=== PATIENT | female | born 1995 | race Two or more races ===

== ENCOUNTER 2023-01-31 14:15 | Emergency (ER) | payer OTHER ==
[~2023-01-31] VITALS: Ht 152.4 cm; Wt 53.4 kg
[2023-01-31 15:11] LABS: Basophils # (auto) 0 10 ^3/uL (0-0.2); Basophils % (auto) 0.4 % (0.0-2.0); Eosinophils # (auto) 0 10 ^3/uL (0-0.8); Eosinophils % (auto) 0.3 % (0.0-7.0); Hematocrit 37.6 % (36.0-46.0); Hemoglobin 12.8 g/dL (12.2-16.2); Lymphocytes # (auto) 2.6 10 ^3/uL (0.4-5.4); Lymphocytes % (auto) 25.9 % (10.0-50.0); Mean Corpuscular Hemoglobin 31.2 pg (28.0-32.0); Mean Corpuscular Hgb Conc. 34.2 g/dL (32.0-36.0); Mean Corpuscular Volume 91.3 fL (80.0-100.0); Monocytes # (auto) 0.9 10 ^3/uL (0-1.3); Monocytes % (auto) 9.2 % (0.0-12.0); Neutrophils # (auto) 6.4 10 ^3/uL (1.6-8.6); Neutrophils % (auto) 64.2 % (37.0-80.0); Red Blood Cells 4.11 10^6/uL (4.0-5.20); Red Cell Distribution Width 13.7 % (11.8-14.3)
[2023-01-31 15:30] LABS: Alanine Aminotransferase 26 U/L (7-40); Albumin 4.6 g/dL (3.2-4.8); Alkaline Phosphatase 68 U/L (46-116); Anion Gap 8 (5-15); Aspartate Aminotransferase 74 U/L (13-40); BUN/Creatinine Ratio 12.1 (10.0-20.0); Blood Urea Nitrogen 11 mg/dL (9-23); Calcium 8.8 mg/dL (8.7-10.4); Carbon Dioxide 24 mmol/L (20-30); Chloride 106 mmol/L (98-107); Glucose 84 mg/dL (74-106); Potassium 3.1 mmol/L (3.5-5.1); Sodium 138 mmol/L (136-145)
[2023-01-31 15:31] LABS: Bilirubin, Total 1.4 mg/dL (0.2-1.0); Total Protein 7.6 g/dL (5.7-8.2)
[2023-01-31 18:04] VITALS: BP 109/72; PULSE 87; RESP 17; TEMP 98.1; O2SAT 99
== END 2023-01-31 18:05 | disposition home or self-care (01) ==
LOC: ER 14:15
DX: S02.2XXA Fracture of nasal bones, initial encounter for closed fracture (principal); S50.812A Abrasion of left forearm, initial encounter; S50.811A Abrasion of right forearm, initial encounter; S80.812A Abrasion, left lower leg, initial encounter; S80.811A Abrasion, right lower leg, initial encounter; Y04.2XXA Assault by strike against or bumped into by another person, initial encounter; Y93.89 Activity, other specified; Y92.89 Other specified places as the place of occurrence of the external cause; Y99.8 Other external cause status
CPT/HCPCS: 36415; 70450; 70486; 71046; 72125; 80053; 85025; 93005

== ENCOUNTER 2024-09-29 12:54 | Emergency (ER) | payer MEDICAID, OTHER ==
[~2024-09-29] VITALS: Ht 152.4 cm; Wt 74.1 kg
[2024-09-29 14:10] VITALS: BP 104/60; PULSE 75; RESP 16; TEMP 98.1; O2SAT 98
[2024-09-29] MEDS ORDERED: CEPH500C PO (14:23)
[2024-09-29] MEDS ORDERED: ACET500T58 PO (14:23)
--- NOTE | 2024-09-29 14:23 | ED.PDOC ---
History of Present Illness(SKN HPI Comments A 29 year old female presents to the ED c/o insect bite of right thigh. Patient states she was bitten by an insect on her right thigh above her right knee 3 days ago and has been experiencing redness, pain, and mild drainage to the area since then. Patient notes she is also currently 2.5 months Denies fever, SOB, chest pain, abdominal pain, nausea, vomiting, diarrhea, headache, dizziness, vision changes, or numbness/tingling of extremities. No other symptoms or modifying factors reported at this time. Patient is alert and oriented x4 and has a stable gait. Chief Complaint: Insect Bite Time Seen by MD: 13:12 Primary Care Provider: NONE History of Present Illness: Nurses Notes, Medications, Allergies Allergies: Coded Allergies: NO KNOWN ALLERGIES (Unverified , 09/29/24) Home Meds Active Scripts Acetaminophen (Acetaminophen) 500 Mg Tab, 500 MG PO Q6HP PRN for 10 Days, #40 TAB 0 Refills Prov:TINO CORRIGAN CIRCUIT CLERK 09/29/24 Cephalexin Monohydrate (Cephalexin) 500 Mg Cap, 1 CAP PO QID for 5 Days, #20 CAP 0 Refills Prov:TINO CORRIGAN CIRCUIT CLERK 09/29/24 Information Source: Patient Mode of Arrival: Ambulatory Severity: Moderate Timing: Days Duration: Since onset, Other Prehospital treatment: None Location: Other (right thigh) Mechanism: Insect Developed: Rash Occurence: Indoors Object: None Condition of Object: None Wound Type: Other (Insect bite) Immunization Status of Animal: NA Tetanus: Unknown History of: None Associated Signs and Symptoms: Redness, Pain Past Medical History PAST MEDICAL HISTORY: Denies Surgical History: Denies all surgeries DRY KILN LOADER History: Denies all DRY KILN LOADER Hx Family History Family History: Reviewed,noncontributory to illness Social History Smoker: Non-Smoker Alcohol: Occasionally Drugs: Marijuana Lives In: Home Constitutional: denies: chills, diaphoresis, fatigue, fever, malaise, sweats, weakness, others EENTM: denies: blurred vision, double vision, ear bleeding, ear discharge, ear drainage, ear pain, ear ringing, eye pain, eye redness, hearing loss, mouth pain, mouth swelling, nasal discharge, nose bleeding, nose congestion, nose pain, photophobia, tearing, throat pain, throat swelling, voice changes, others Respiratory: denies: cough, hemoptysis, orthopnea, SOB at rest, shortness of breath, SOB with excertion, stridor, wheezing, others Cardiovascular: denies: chest pain, dizzy spells, diaphoresis, Dyspnea on exertion, edema, irregular heart beat, left arm pain, lightheadedness, palpitations, PND, syncope, others Gastrointestinal: denies: abdomen distended, abdominal pain, blood streaked bowels, constipated, diarrhea, dysphagia, difficulty swallowing, hematemesis, melena, nausea, poor appetite, poor fluid intake, rectal bleeding, rectal pain, vomiting, others Genitourinary: denies: abnormal vagina bleeding, burning, dyspareunia, dysuria, flank pain, frequency, hematuria, incontinence, pain, , vagina discharge, urgency, others Neurological: denies: dizziness, fainting, headache, left sided numbness, left sided weakness, numbness, paresthesia, pre-existing deficit, right sided numbness, right sided weakness, seizure, speech problems, tingling, tremors, weakness, others Musculoskeletal: denies: back pain, gout, joint pain, joint swelling, muscle pain, muscle stiffness, neck pain, others Integumetry: reports: others (Insect bite of right thigh/knee region with redness and pain); denies: bruises, change in color, change in hair/nails, dryness, laceration, lesions, lumps, rash, wounds Allergic/Immunocompromised: denies: Difficulty Healing, Frequent Infections, Hives, Itching, others Hematologic/Lymphatic: denies: anemia, blood clots, easy bleeding, easy bruising, swollen glands, others Endocrine: denies: excessive hunger, excessive sweating, excessive thirst, excessive urination, flushing, intolerance to cold, intolerance to heat, unexplained weight gain, unexplained weight loss, others Psychiatric: denies: anxiety, bipolar disorder, depression, hopeless, panic disorder, schizophrenia, sleepless, suicidal, others All Other Systems: Reviewed and Negative Physical Exam General Appearance: No Apparent Distress, Normal HEENT: Normal ENT Inspection, Pharynx Normal, TMs Normal Neck: Full Range of Motion, Non-Tender, Normal, Normal Inspection Respiratory: Chest Non-Tender, Lungs Clear, No Accessory Muscle Use, No Respiratory Distress, Normal Breath Sounds Cardiovascular: No Edema, No JVD, No Murmur, No Gallop, Regular Rate/Rhythm Breast Exam: Deferred Gastrointestinal: No Organomegaly, Non Tender, No Pulsatile Mass, Normal Bowel Sounds, Soft Genitalia: Deferred Pelvic: Deferred Rectal: Deferred Extremities: No calf tenderness, Normal capillary refill, Normal inspection, Normal range of motion, Non-tender, No pedal edema Musculoskeletal : Apperance: Normal Neurologic: Alert, piggyback clerk II-XII nml as Tested, No Motor Deficits, Normal Affect, Normal Mood, No Sensory Deficits Cerebellar Function: Normal Reflexes: Normal Skin: Dry, Warm, Other (2 x 4 cm round erythematous rash noted above right anterior patellar region. No TIP. No fluctuance noted. No crepitus upon palpation.) Lymphatic: No Adenopathy Was a procedure done? Was a procedure done?: No Differential Diagnosis (INTG) Differential Diagnosis: Abrasion, Cellulitis, Contusion, Insect Envenomation, Puncture Wound Differential Diagnosis: N/A Differential Diagnosis: N/A Abscess: N/A Differential Diagnosis: N/A X-Ray, Labs, Meds, VS Vital Signs Date Time Temp Pulse Resp B/P (MAP) Pulse Ox O2 Delivery O2 Flow Rate FiO2 09/29/24 14:10 75 16 98 09/29/24 14:10 98.1 75 16 104/60 (75) 98 98.1 09/29/24 13:07 98.1 75 16 104/60 (75) 98 98.1 X-Ray, Labs, Meds, VS Comment A 29 year old female presents to the ED c/o insect bite of right thigh region. Patient arrives alert and oriented, ABC's intact, afebrile, vital signs stable, saturating well in room air History and findings consistent with cellulitis. The area of infection does not appear to have any loculations/induration based on physical exam. The patient did not require an incision and drainage. Patient well appearing. VSS. Given History, Exam, and Workup I have low suspicion for Necrotizing Fasciitis, Abscess, Osteomyelitis, DVT or other emergent problem as a cause for this presentation. Low risk for treatment failure based on history. Prescribed p.o. antibiotics for presentation of symptoms Complete course of antibiotic therapy even if symptoms improve or resolve. There should be no leftover antibiotics as this can lead to antibiotic resistant bacteria and even worse infection. Patient verbalized understanding. Potential side effects discussed with patient including abdominal pain, nausea, diarrhea. Recommended probiotics and return precautions given Persistent diarrhea Dehydration Blood in stool Ill-appearing Additional MDM Review of External, Non-ED records: External records reviewed. Discussion with independent historian history obtained from the patient (if applicable) at bedside Chronic conditions affecting care: None Social determinants of health affecting care: None Procedures done: None Critical care: None Consideration of admission (observation or admission): I considered escalation of care to admission for this patient, however given the reassuring workup, the patient is safe for outpatient management. Discussion with the Radiology: No Tests considered but not performed: None Prescription medication given: Keflex and Tylenol Discussed the patient's case with Dr. Galvan and he agrees with the patient's plan of care and disposition. Time of 1ST Reevaluation: 14:00 Reevaluation 1ST: Improved Patient Education/Counseling: Diagnosis, Treatment, Need For Follow Up Family Education/Counseling: Diagnosis, Treatment, Need For Follow Up Departure 1 Departure Time of Disposition: 14:21 Impression: Primary Impression: Cellulitis Qualified Codes: L03.115 - Cellulitis of right lower limb Additional Impression: Insect bite Qualified Codes: S70.361A - Insect bite (nonvenomous), right thigh, initial encounter; W57.XXXA - Bitten or stung by nonvenomous insect and other nonvenomous arthropods, initial encounter Disposition: HOME / SELF CARE / HOMELESS Condition: Stable Additional Instructions: Follow up with PCP in 1-2 days. Take medications as prescribed. Return to the ED for any new or worsening symptoms. e-Prescriptions Acetaminophen (Acetaminophen) 500 Mg Tab 500 MG PO Q6HP PRN for 10 Days, #40 TAB 0 Refills Prov: TINO CORRIGAN NP 09/29/24 Cephalexin Monohydrate (Cephalexin) 500 Mg Cap 1 CAP PO QID for 5 Days, #20 CAP 0 Refills Prov: TINO CORRIGAN NP 09/29/24 Discharged With: Self Critical Care Note Critical Care Time?: No Stability Stability form required: No Heart Score Heart Score: Heart Score Response (Comments) Value History N/A 0 EKG N/A 0 Age N/A 0 Risk Factors N/A 0 Troponin N/A 0 Total 0 I personally scribed for TINO CORRIGAN NP ([email or web address]) on 09/29/24 at 14:31. Electronically submitted by Rui Steiner ([email or web address]). TINO CORRIGAN NP Sep 29, 2024 14:23
== END 2024-09-29 14:30 | disposition home or self-care (01) ==
LOC: ER 12:54
DX: S70.361A Insect bite (nonvenomous), right thigh, initial encounter (principal); L03.115 Cellulitis of right lower limb; F10.90 Alcohol use, unspecified, uncomplicated; F19.90 Other psychoactive substance use, unspecified, uncomplicated; Y90.9 Presence of alcohol in blood, level not specified; Z79.899 Other long term (current) drug therapy; W57.XXXA Bitten or stung by nonvenomous insect and other nonvenomous arthropods, initial encounter; Y93.89 Activity, other specified; Y92.89 Other specified places as the place of occurrence of the external cause; Y99.8 Other external cause status

== ENCOUNTER 2025-04-19 11:35 | Inpatient (IN) | payer MEDICAID ==
[~2025-04-19] VITALS: Ht 152.4 cm; Wt 87.1 kg
[~2025-04-19 11:35] MED LIST: ACET500T58 PO; CEPH500C PO
[2025-04-19] MEDS ORDERED: BUTORPHANOL TARTRATE 2 MG/1 ML VIAL IV PRN ×2 (13:00)
[2025-04-19] MEDS ORDERED: LACT. RINGERS/OXYTOCIN 20UNITS 500 ML IV ONE ×2 (13:00→13:30)
[2025-04-19] MEDS ORDERED: LIDOCAINE 2%HCL (LOCAL ANESTH.) INJ 20ML MDV IJ PRN (13:00)
[2025-04-19] MEDS: PHISODERM TOP SOLN 240ML BTL TOP PRN (13:29)
[2025-04-19] MEDS: DERMOPLAST 60ML BOTTLE TOP PRN (13:29)
[2025-04-19] MEDS: WITCH HAZEL-GLYCERIN PAD TOP PRN (13:29)
[2025-04-19 13:48] LABS: Hematocrit 36.0 % (36.0-46.0); Hemoglobin 11.8 g/dL (12.2-16.2); Mean Corpuscular Hemoglobin 27.9 pg (28.0-32.0); Mean Corpuscular Volume 84.9 fL (80.0-100.0); Nucleated Red Blood Cells % 0.3 %
[2025-04-19 13:58] LABS: INR 0.91 (0.9-1.15); Partial Thromboplastin Time 25.7 SEC (24.5-34.5); Prothrombin Time 9.7 sec (9.3-11.8)
[2025-04-19 14:01] LABS: Amphetamine Screen, Urine Neg (NEGATIVE)
[2025-04-19 14:03] LABS: Barbiturate Scree,Urine Neg (NEGATIVE); Benzodiazephine Screen, Urine Neg (NEGATIVE); Cannabinoid Screen, Urine Neg (NEGATIVE); Cocaine Screen, Urine Neg (NEGATIVE); Opiate Scree,Urine Neg (NEGATIVE); Phencyclidine Screen, Urine Neg (NEGATIVE)
[2025-04-19 14:04] LABS: Alanine Aminotransferase 13 U/L (7-40); Albumin 3.9 g/dL (3.2-4.8); Alkaline Phosphatase 177 U/L (46-116); Anion Gap 12 (5-15); BUN/Creatinine Ratio 11.1 (10.0-20.0); Bilirubin, Total 0.3 mg/dL (0.2-1.0); Blood Urea Nitrogen 6 mg/dL (9-23); Calcium 9.0 mg/dL (8.7-10.4); Carbon Dioxide 18 mmol/L (20-31); Chloride 108 mmol/L (98-107); Glucose 94 mg/dL (74-106); Potassium 3.9 mmol/L (3.5-5.1); Sodium 138 mmol/L (136-145); Total Protein 6.8 g/dL (5.7-8.2)
[2025-04-19 14:05] LABS: Urine Protein, UAD Negative (Negative)
--- NOTE | 2025-04-19 15:02 | DVHHP2 ---
OB CC & HPI Date Date of Admission: Apr 19, 2025 Patient Identification: : 1 Para: 0 EDC: Apr 22, 2025 EGA: 39wks Chief Complaints: Reason for admission: induction of labor Indication for : other (dec movement and low lorenzo) Admission Nurse Assessment Rev: No History of Present Complaints pt is admitted for low lorenzo a of 6cm and dec movement. efw is 8-1,option of pcs to avoid shoulder dystocia is d/w pt pt wants to proceed with trial of labor. Past Medical History Cardiac: No pertinent Hx Pulmonary: No pertinent Hx Central Nervous System: No pertinent Hx GI: No pertinent Hx Hemotology/Oncology: No pertinent Hx Hepatobiliary: No pertinent Hx Psychiatric: No pertinent Hx Musculoskeletal: No pertinent Hx Rheumotologic: No pertinent Hx Infectious Disease: No peritnent Hx ENT: No pertinent Hx Renal/: No pertinent Hx Endocrine: No pertinent Hx Dermatology: No pertinent Hx Past Surgical History: No pertinent Hx OB History OB History Care: Good Care Ultrasounds: Normal mid trimester US Obstetrical Complications: None Medical Complications: None Allergies: Coded Allergies: NO KNOWN ALLERGIES (Unverified , 09/29/24) Home Meds Active Scripts Acetaminophen (Acetaminophen) 500 Mg Tab, 500 MG PO Q6HP PRN for 10 Days, #40 TAB 0 Refills Prov:TINO CORRIGAN SUPERVISOR MACHINING 09/29/24 Cephalexin Monohydrate (Cephalexin) 500 Mg Cap, 1 CAP PO QID for 5 Days, #20 CAP 0 Refills Prov:TINO CORRIGAN SUPERVISOR MACHINING 09/29/24 Current Medications Current Medications Medications (Trade) Dose Ordered Sig/Kalyani Route PRN Reason Start Time Stop Time Status Last Admin Lactated Ringer's 1,000 ml @ 125 mls/hr Q8H IV 04/19/25 13:00 Kristen Chavira (Tucks) 1 pad PRN PRN TOP PERINEAL AREA DISCOMFORT 04/19/25 13:00 04/19/25 13:29 Sodium Lauryl Sulfate (Phisoderm) 240 ml PRN PRN TOP PERINEAL AREA DISCOMFORT 04/19/25 13:00 04/19/25 13:29 Benzocaine (Dermoplast) 1 applic PRN PRN TOP PERINEAL AREA DISCOMFORT 04/19/25 13:00 04/19/25 13:29 Butorphanol Tartrate (Stadol Injection) 1 mg Q4HPRN PRN IV MODERATE PAIN (4-6 PAIN SCALE) 04/19/25 13:00 Butorphanol Tartrate (Stadol Injection) 2 mg Q4HPRN PRN IV SEVERE PAIN (7-10 PAIN SCALE) 04/19/25 13:00 Misoprostol (Cytotec) 50 mcg Q4HPRN PRN PO CERVICAL RIPENING 04/19/25 13:00 04/19/25 13:30 Lidocaine HCl (Xylocaine) 20 ml ONCE PRN IJ PERINEAL AREA DISCOMFORT 04/19/25 13:00 Family & Social History Family/Social History Blood Type: Unknown Rubella: unknown RPR/VDRL: Unknown GBS Status: Unknown HBsAG: Unknown Review of Systems Constitutional: No symptom reported Ears, Nose, & Throat: No symptom reported Eyes: No symptom reported Pulmonary/Respiratory: No symptom reported Cardiovascular: No symptom reported Gastrointestinal: No symptom reported Genitourinary: No symptom reported Musculoskeletal: No symptom reported Skin: No symptom reported Psychiatric: No symptom reported Endocrine: No symptom reported Hemotologic/Lymphatic: No symptom reported OB Admission Exam Physical Exam HEENT: TMs Normal, Fontanelles Normal, Nasal Mucosa Normal, Eyes non-injected, Oropharynx Normal, PERRLA, Moist Membranes, EOMI Heart: Rhythm Normal Lungs: Clear Abdomen: Non tender Extremities: Normal Reflexes: Normal Cervical Dilatation: None Effacement: 25% Station: -3 Membranes: Intact Heart Rate: 130's Accelerations: Accelerations Present Decelerations: No Decelerations Short Term Variability: Present Fpc Variability: Average (6-25) Contractions on Admission: >10 Minutes Apart Intensity: Mild OB Plan Plan Admitting Diagnosis: Induction of Labor for oligo Plan: Expectant Management, Induction Induction Methd: Misoprostol protocol Other Plan: informed consent obtained,risks and complication of iol d/w pt.option of pcs to avoid shoulder dystocia d/w pt.pt wants trial of labor Visit Coding OBGYN Date of Service: Apr 19, 2025 Billing Provider: ROSSI POMPA DO WRONG ADDRESS CLERK Common Visit Codes: [id number] OBS CARE (HIGH) WRONG ADDRESS CLERK Procedure Codes: 77126-94- NON-STRESS TEST ROSSI POMPA DO Apr 19, 2025 15:02
--- NOTE | 2025-04-19 20:25 | DVHPN2 ---
OB Labor Progress Note Date and Time Seen Date Seen: Apr 19, 2025 Time Seen: 17:00 Subjective Patient reports: No new complaints Subjective Comment 30yo IUP@39.4wks. Pt reports irregular UCs. Objective Vital Signs VSS See kelley JOSEW in office 6lbs 10oz per pt Monitoring Method Monitoring Method: External Heart Rate Heart Rate Baseline: 145 Heart Rate Variability: Moderate Presence of FHR Accelerations: Yes Presence of FHR Decelerations: No Changes in Trends of Patterns: No Are all 5 Components of the FH: Yes Contractions Contractions Frequency: Occasional Duration of Contraction: 50 Contractions Intensity: Mild Contractions Resting Tone: Relaxed Membranes Membranes: Intact Vaginal Exam Vag Exam Deferred: Yes Vaginal Exam Show: None Medications Medications - Pitocin: No Medications - Pain Medications: PRN Medication - Epidural: No Medication - Other s/p 1 dose of cytotec Lab Results Lab Results Current Medications Medications (Trade) Dose Ordered Sig/Kalyani Start Time Stop Time Status Last Admin Dose Admin Lactated Ringer's 1,000 ml @ 125 mls/hr Q8H 04/19/25 13:00 Kristen Chavira (Tucks) 1 pad PRN PRN 04/19/25 13:00 04/19/25 13:29 1 PAD Sodium Lauryl Sulfate (Phisoderm) 240 ml PRN PRN 04/19/25 13:00 04/19/25 13:29 240 ML Benzocaine (Dermoplast) 1 applic PRN PRN 04/19/25 13:00 04/19/25 13:29 1 APPLIC Butorphanol Tartrate (Stadol Injection) 1 mg Q4HPRN PRN 04/19/25 13:00 Butorphanol Tartrate (Stadol Injection) 2 mg Q4HPRN PRN 04/19/25 13:00 Misoprostol (Cytotec) 50 mcg Q4HPRN PRN 04/19/25 13:00 04/19/25 22:26 50 MCG Lidocaine HCl (Xylocaine) 20 ml ONCE PRN 04/19/25 13:00 Oxytocin 500 ml @ 999 mls/hr Q31M ONCE 04/19/25 13:00 04/19/25 13:30 DC Oxytocin 500 ml @ 125 mls/hr Q4H ONCE 04/19/25 13:30 04/19/25 17:29 DC Laboratory Tests Test 04/19/25 13:09 04/19/25 11:45 Range/Units White Blood Count 10.0 4.4-10.8 10^3/uL Red Blood Count 4.24 4.0-5.20 10^6/uL Hemoglobin 11.8 L 12.2-16.2 g/dL Hematocrit 36.0 36.0-46.0 % Mean Corpuscular Volume 84.9 80.0-100.0 fL Mean Corpuscular Hemoglobin 27.9 L 28.0-32.0 pg Mean Corpuscular Hemoglobin Concent 32.9 32.0-36.0 g/dL Red Cell Distribution Width 15.9 H 11.8-14.3 % Platelet Count 315 140-450 10^3/uL Mean Platelet Volume 7.7 6.9-10.8 fL Neutrophils (%) (Auto) 76.7 37.0-80.0 % Lymphocytes (%) (Auto) 17.3 10.0-50.0 % Monocytes (%) (Auto) 4.6 0.0-12.0 % Eosinophils (%) (Auto) 1.0 0.0-7.0 % Basophils (%) (Auto) 0.4 0.0-2.0 % Neutrophils # (Auto) 7.7 1.6-8.6 10 ^3/uL Lymphocytes # (Auto) 1.7 0.4-5.4 10 ^3/uL Monocytes # (Auto) 0.5 0-1.3 10 ^3/uL Eosinophils # (Auto) 0.1 0-0.8 10 ^3/uL Basophils # (Auto) 0 0-0.2 10 ^3/uL Nucleated Red Blood Cells 0.3 % Prothrombin Time 9.7 9.3-11.8 sec Prothrombin Time INR 0.91 0.9-1.15 Activated Partial Thromboplast Time 25.7 24.5-34.5 SEC Sodium Level 138 136-145 mmol/L Potassium Level 3.9 3.5-5.1 mmol/L Chloride Level 108 H 98-107 mmol/L Carbon Dioxide Level 18 L 20-31 mmol/L Anion Gap 12 5-15 Blood Urea Nitrogen 6 L 9-23 mg/dL Creatinine 0.54 L 0.550-1.02 mg/dL Glomerular Filtration Rate Calc 129 >90 mL/min BUN/Creatinine Ratio 11.1 10.0-20.0 Serum Glucose 94 74-106 mg/dL Calcium Level 9.0 8.7-10.4 mg/dL Total Bilirubin 0.3 0.2-1.0 mg/dL Aspartate Amino Transferase (AST) 15 13-40 U/L Alanine Aminotransferase (ALT) 13 7-40 U/L Alkaline Phosphatase 177 H 46-116 U/L Total Protein 6.8 5.7-8.2 g/dL Albumin 3.9 3.2-4.8 g/dL Treponema pallidum Antibody Non-reactive Negative Hepatitis C Antibody Pending Urine Color Yellow Yellow Urine Clarity Turbid H Clear Urine pH 5.5 5.0-9.0 Urine Specific [place] 1.023 1.001-1.035 Urine Protein Negative Negative Urine Ketones Negative Negative Urine Blood Negative Negative /uL Urine Nitrite Negative Negative Urine Bilirubin Negative Negative Urine Urobilinogen Normal Negative mg/dL Urine Leukocyte Esterase Trace Negative /uL Urine RBC 7 0 - 4 /hpf Urine Microscopic WBC 3 0-5 /HPF Urine Squamous Epithelial Cells Many <5 /hpf Urine Bacteria Few H None Seen /hpf Urine Mucus Few None Seen Urine Glucose Normal Normal mg/dL Urine Opiates Screen Neg NEGATIVE Urine Fentanyl Screen Neg NEGATIVE Urine Barbiturates Screen Neg NEGATIVE Urine Phencyclidine Screen Neg NEGATIVE Urine Amphetamines Screen Neg NEGATIVE Urine Benzodiazepines Screen Neg NEGATIVE Urine Cocaine Screen Neg NEGATIVE Urine Cannabinoids Screen Neg NEGATIVE Consulting with Consulting with: None Assessment Assessment 30yo IUP@39.4wks Induction of Labor for oligohydramnios Category I EFM Intact Membranes GBS negative Plan Plan Continue with PO cytotec monitoring per order Pain mgmt PRN Frequent position changes in and out of bed encouraged Limit SVE unless necessary Intrauterine resuscitation PRN Anticipate CNM will consult with Dr Esteves PRN Plan discussed with: Patient, Spouse Visit Coding OBGYN Date of Service: Apr 19, 2025 Billing Provider: SRINIVAS LINARES CNM SHARED SERVICES AND OUTSOURCING MANAGER Common Visit Codes: [id number] INP/OBS CARE(MOD) SHARED SERVICES AND OUTSOURCING MANAGER Procedure Codes: 06077-02- NON-STRESS TEST NANCY VOSSMDW Apr 19, 2025 20:25
--- NOTE | 2025-04-19 22:58 | DVHPN2 ---
OB Labor Progress Note Date and Time Seen Date Seen: Apr 19, 2025 Time Seen: 22:35 Subjective Patient reports: No new complaints Objective Vital Signs VSS, see CPN Monitoring Method Monitoring Method: External Heart Rate Heart Rate Baseline: 135 Heart Rate Variability: Moderate Presence of FHR Accelerations: Yes Presence of FHR Decelerations: No Changes in Trends of Patterns: No Are all 5 Components of the FH: Yes Contractions Contractions Frequency: Occasional Duration of Contraction: 60 Contractions Intensity: Mild Contractions Resting Tone: Relaxed Membranes Membranes: Intact Vaginal Exam Vag Exam Deferred: No (/-4) Vaginal Exam Presentation: VTX Vaginal Exam Show: None Medications Medications - Pitocin: No Medications - Pain Medications: prn Medication - Epidural: No Medication - Other S/P 2 doses of cytotec Lab Results Lab Results Current Medications Medications (Trade) Dose Ordered Sig/Kalyani Start Time Stop Time Status Last Admin Dose Admin Lactated Ringer's 1,000 ml @ 125 mls/hr Q8H 04/19/25 13:00 Kristen Chavira (Tucks) 1 pad PRN PRN 04/19/25 13:00 04/19/25 13:29 1 PAD Sodium Lauryl Sulfate (Phisoderm) 240 ml PRN PRN 04/19/25 13:00 04/19/25 13:29 240 ML Benzocaine (Dermoplast) 1 applic PRN PRN 04/19/25 13:00 04/19/25 13:29 1 APPLIC Butorphanol Tartrate (Stadol Injection) 1 mg Q4HPRN PRN 04/19/25 13:00 Butorphanol Tartrate (Stadol Injection) 2 mg Q4HPRN PRN 04/19/25 13:00 Misoprostol (Cytotec) 50 mcg Q4HPRN PRN 04/19/25 13:00 04/19/25 22:26 50 MCG Lidocaine HCl (Xylocaine) 20 ml ONCE PRN 04/19/25 13:00 Oxytocin 500 ml @ 999 mls/hr Q31M ONCE 04/19/25 13:00 04/19/25 13:30 DC Oxytocin 500 ml @ 125 mls/hr Q4H ONCE 04/19/25 13:30 04/19/25 17:29 DC Laboratory Tests Test 04/19/25 13:09 04/19/25 11:45 Range/Units White Blood Count 10.0 4.4-10.8 10^3/uL Red Blood Count 4.24 4.0-5.20 10^6/uL Hemoglobin 11.8 L 12.2-16.2 g/dL Hematocrit 36.0 36.0-46.0 % Mean Corpuscular Volume 84.9 80.0-100.0 fL Mean Corpuscular Hemoglobin 27.9 L 28.0-32.0 pg Mean Corpuscular Hemoglobin Concent 32.9 32.0-36.0 g/dL Red Cell Distribution Width 15.9 H 11.8-14.3 % Platelet Count 315 140-450 10^3/uL Mean Platelet Volume 7.7 6.9-10.8 fL Neutrophils (%) (Auto) 76.7 37.0-80.0 % Lymphocytes (%) (Auto) 17.3 10.0-50.0 % Monocytes (%) (Auto) 4.6 0.0-12.0 % Eosinophils (%) (Auto) 1.0 0.0-7.0 % Basophils (%) (Auto) 0.4 0.0-2.0 % Neutrophils # (Auto) 7.7 1.6-8.6 10 ^3/uL Lymphocytes # (Auto) 1.7 0.4-5.4 10 ^3/uL Monocytes # (Auto) 0.5 0-1.3 10 ^3/uL Eosinophils # (Auto) 0.1 0-0.8 10 ^3/uL Basophils # (Auto) 0 0-0.2 10 ^3/uL Nucleated Red Blood Cells 0.3 % Prothrombin Time 9.7 9.3-11.8 sec Prothrombin Time INR 0.91 0.9-1.15 Activated Partial Thromboplast Time 25.7 24.5-34.5 SEC Sodium Level 138 136-145 mmol/L Potassium Level 3.9 3.5-5.1 mmol/L Chloride Level 108 H 98-107 mmol/L Carbon Dioxide Level 18 L 20-31 mmol/L Anion Gap 12 5-15 Blood Urea Nitrogen 6 L 9-23 mg/dL Creatinine 0.54 L 0.550-1.02 mg/dL Glomerular Filtration Rate Calc 129 >90 mL/min BUN/Creatinine Ratio 11.1 10.0-20.0 Serum Glucose 94 74-106 mg/dL Calcium Level 9.0 8.7-10.4 mg/dL Total Bilirubin 0.3 0.2-1.0 mg/dL Aspartate Amino Transferase (AST) 15 13-40 U/L Alanine Aminotransferase (ALT) 13 7-40 U/L Alkaline Phosphatase 177 H 46-116 U/L Total Protein 6.8 5.7-8.2 g/dL Albumin 3.9 3.2-4.8 g/dL Treponema pallidum Antibody Non-reactive Negative Hepatitis C Antibody Pending Urine Color Yellow Yellow Urine Clarity Turbid H Clear Urine pH 5.5 5.0-9.0 Urine Specific [place] 1.023 1.001-1.035 Urine Protein Negative Negative Urine Ketones Negative Negative Urine Blood Negative Negative /uL Urine Nitrite Negative Negative Urine Bilirubin Negative Negative Urine Urobilinogen Normal Negative mg/dL Urine Leukocyte Esterase Trace Negative /uL Urine RBC 7 0 - 4 /hpf Urine Microscopic WBC 3 0-5 /HPF Urine Squamous Epithelial Cells Many <5 /hpf Urine Bacteria Few H None Seen /hpf Urine Mucus Few None Seen Urine Glucose Normal Normal mg/dL Urine Opiates Screen Neg NEGATIVE Urine Fentanyl Screen Neg NEGATIVE Urine Barbiturates Screen Neg NEGATIVE Urine Phencyclidine Screen Neg NEGATIVE Urine Amphetamines Screen Neg NEGATIVE Urine Benzodiazepines Screen Neg NEGATIVE Urine Cocaine Screen Neg NEGATIVE Urine Cannabinoids Screen Neg NEGATIVE Assessment Assessment 30yo IUP@39.4wks Induction of Labor for oligohydramnios Category I EFM Intact Membranes GBS negative Plan Plan Continue with PO cytotec monitoring per order Pain mgmt PRN Frequent position changes in and out of bed encouraged Limit SVE unless necessary Intrauterine resuscitation PRN Anticipate CNM will consult with Dr Esteves PRN Plan discussed with: Patient, Spouse Visit Coding OBGYN Date of Service: Apr 19, 2025 Billing Provider: SRINIVAS LINARES CNM CONTRACT GRAPHIC DESIGNER Common Visit Codes: [id number] INP/OBS CARE(MOD) NANCY VOSS STUDENTMDW Apr 19, 2025 22:58
--- NOTE | 2025-04-20 07:53 | DVHPN2 ---
Chief Complaints Patient reports: No new complaints Nursing reports: No new complaints Objective Medications Current Medications Medications (Trade) Dose Ordered Sig/Kalyani Route PRN Reason Start Time Stop Time Status Last Admin Benzocaine (Dermoplast) 1 applic PRN PRN TOP PERINEAL AREA DISCOMFORT 04/19/25 13:00 04/19/25 13:29 Butorphanol Tartrate (Stadol Injection) 1 mg Q4HPRN PRN IV MODERATE PAIN (4-6 PAIN SCALE) 04/19/25 13:00 Butorphanol Tartrate (Stadol Injection) 2 mg Q4HPRN PRN IV SEVERE PAIN (7-10 PAIN SCALE) 04/19/25 13:00 Lactated Ringer's 1,000 ml @ 125 mls/hr Q8H IV 04/19/25 13:00 Lidocaine HCl (Xylocaine) 20 ml ONCE PRN IJ PERINEAL AREA DISCOMFORT 04/19/25 13:00 Misoprostol (Cytotec) 50 mcg Q4HPRN PRN PO CERVICAL RIPENING 04/19/25 13:00 04/20/25 07:00 Sodium Lauryl Sulfate (Phisoderm) 240 ml PRN PRN TOP PERINEAL AREA DISCOMFORT 04/19/25 13:00 04/19/25 13:29 Witch Cait (Tucks) 1 pad PRN PRN TOP PERINEAL AREA DISCOMFORT 04/19/25 13:00 04/19/25 13:29 Others ve-1cm/40/-3/post Studies Laboratory Tests 04/19/25 13:09 Test 04/19/25 13:09 Range/Units Serum Glucose 94 74-106 mg/dL Ass/Plan Assessment iol for oligo Plan rec cytotec cont with cytotec Visit Coding OBGYN Date of Service: Apr 20, 2025 Billing Provider: ROSSI POMPA DO PRINTING MACHINE MECHANIC Common Visit Codes: [id number] OBS CARE (HIGH) PRINTING MACHINE MECHANIC Procedure Codes: 65176-82- NON-STRESS TEST ROSSI POMPA DO Apr 20, 2025 07:53
[2025-04-20] MEDS: LACTATED RINGER'S 1,000 ML IV SCH (07:59)
[2025-04-20] MEDS ORDERED: DINOPROSTONE 10MG VAG SUPP PV ONE (12:00)
--- NOTE | 2025-04-20 12:14 | DVHPN2 ---
Chief Complaints Patient reports: No new complaints Nursing reports: No new complaints Objective Medications Current Medications Medications (Trade) Dose Ordered Sig/Kalyani Route PRN Reason Start Time Stop Time Status Last Admin Benzocaine (Dermoplast) 1 applic PRN PRN TOP PERINEAL AREA DISCOMFORT 04/19/25 13:00 04/19/25 13:29 Butorphanol Tartrate (Stadol Injection) 1 mg Q4HPRN PRN IV MODERATE PAIN (4-6 PAIN SCALE) 04/19/25 13:00 Butorphanol Tartrate (Stadol Injection) 2 mg Q4HPRN PRN IV SEVERE PAIN (7-10 PAIN SCALE) 04/19/25 13:00 Lactated Ringer's 1,000 ml @ 125 mls/hr Q8H IV 04/19/25 13:00 04/20/25 07:59 Lidocaine HCl (Xylocaine) 20 ml ONCE PRN IJ PERINEAL AREA DISCOMFORT 04/19/25 13:00 Misoprostol (Cytotec) 50 mcg Q4HPRN PRN PO CERVICAL RIPENING 04/19/25 13:00 04/20/25 07:00 Sodium Lauryl Sulfate (Phisoderm) 240 ml PRN PRN TOP PERINEAL AREA DISCOMFORT 04/19/25 13:00 04/19/25 13:29 Witch Cait (Tucks) 1 pad PRN PRN TOP PERINEAL AREA DISCOMFORT 04/19/25 13:00 04/19/25 13:29 Others ve unchanged Studies Laboratory Tests 04/19/25 13:09 Test 04/19/25 13:09 Range/Units Serum Glucose 94 74-106 mg/dL Ass/Plan Assessment iol for oligo Plan will consider cervidil Visit Coding OBGYN Date of Service: Apr 20, 2025 Billing Provider: ROSSI POMPA DO BIOMEDICAL ANALYTICAL SCIENTIST Common Visit Codes: [id number] OBS CARE (HIGH) BIOMEDICAL ANALYTICAL SCIENTIST Procedure Codes: 11968-15- NON-STRESS TEST ROSSI POMPA DO Apr 20, 2025 12:14
--- NOTE | 2025-04-20 12:22 | DVH ---
BIOPHYSICAL PROFILE HISTORY: BETHANY check with MVP TECHNIQUE: Multiple real-time grayscale sonographic images through the gravid uterus of the fetus with duplex Doppler color flow. FINDINGS: BIOPHYSICAL PROFILE: breathing score: 2 movement score: 2 tone score: 2 Quantitative BETHANY score: 2 Total score: 8 out of 8 Single live intrauterine . BETHANY 6.3 cm. Placenta anteriorly positioned. heart rate 150 beats per minute Cephalic lie. IMPRESSION: Biophysical profile score: 8 out of 8
--- NOTE | 2025-04-20 12:37 | DVH ---
EXAM: US OB ULTRASOUND COMP GTR 14 WKS HISTORY:: EFW COMPARISON: None TECHNIQUE:: Transabdominal and endovaginal real time dodd scale, color, and doppler evaluation. Permanent images are maintained in the patient record. FINDINGS: GA by previous US/LMP: 39 weeks, 5 days ODALYS by previous US/LMP: 04/22/25 US GESTATIONAL AGE: 37 weeks, 0 days US ODALYS: 05/11/25 ESTIMATED WEIGHT: 3163 g. 7 lb, 0 oz HEART RATE: 136 bpm BPD: 9.45 cm, 38 weeks 4 days, 59% HC: 32.22 cm, 36 weeks 3 days, 3% AC: 34.33 cm, 38 weeks 2 days, 33.5% FL: 6.77 cm, 34 weeks 6days, 3% HC/AC: 0.94 ANATOMY: Normal stomach, right and left kidneys, bladder. 4-chamber heart is not visible. POSITION: Cephalic PLACENTA: Anterior GRADE: 2 BETHANY: 6.3 cm IMPRESSION: 1. Single viable gestation with normal cardiac heart rate. 2. Low amniotic fluid index 3. No placenta previa or abruption
[2025-04-20] MEDS ORDERED: PREN-96 PO (12:38)
--- NOTE | 2025-04-20 12:39 | DVHDS2 ---
Physician Discharge Progress N Final Diagnosis: term preg iol for oligo failed will proceed with serial induction Operations or Procedures: Operations or Procedures nst reactive reviwed,sono Other Interventions Other Interventions pt wants to go home and come back tmw for iol since nst/bpp wnl Condition on Discharge: Good Disposition: Home Discharge Instructions: Diet: Regular Activity: No Restrictions, As Tolerated Medications: na Follow Up Care: Specialist: 1d Discharge Statement: "Patient was advised to return to the ER or call 911 if any headaches, dizziness, shortness of breath, chest pain, abdominal pain, bleeding, fevers, or worsening of medical condition. Patient was counseled about treatment plan, medications, possible side effects, patientverbalized understanding. All questions were answered to the best of my ability. This discharge took greater then 30 minutes in planning, reviewing documentation, counseling the patient, and discussing with other team members." Visit Coding OBGYN Date of Service: Apr 20, 2025 Billing Provider: ROSSI POMPA DO HOUSEKEEPING AID Common Visit Codes: [id number] OBS CARE (HIGH) HOUSEKEEPING AID Procedure Codes: 18481-83- NON-STRESS TEST ROSSI POMPA DO Apr 20, 2025 12:39
== END 2025-04-20 13:01 | disposition home or self-care (01) | DRG 566 ==
LOC: UNDOADMOB 11:35 → LDRP 11:35 → INTOOBSV 11:41 → OBSVTOIN 11:41
PROVIDERS: ADMIT Obstetrics & Gynecology; ATTEND Obstetrics & Gynecology
DX: O41.03X0 Oligohydramnios, third trimester, not applicable or unspecified (principal); Z3A.39 39 weeks gestation of pregnancy
CPT/HCPCS: 36415; 76805; 76819; 80053; 80307; 81001; 85025; 85610; 85730; 86780; 86803; 86850; 86900; 86901; 94760; 96360; 96361; 96366; A4344; G0378

== ENCOUNTER 2025-04-21 20:40 | Inpatient (IN) | payer MEDICAID ==
[~2025-04-21] VITALS: Ht 152.4 cm; Wt 87.1 kg
[~2025-04-21 20:40] MED LIST changes: +PREN-96 PO
[2025-04-21] MEDS ORDERED: BUTORPHANOL TARTRATE 2 MG/1 ML VIAL IV PRN ×2 (21:00)
[2025-04-21] MEDS ORDERED: LIDOCAINE 2%HCL (LOCAL ANESTH.) INJ 20ML MDV IJ PRN (21:00)
--- NOTE | 2025-04-21 22:03 | DVHHP2 ---
OB CC & HPI Date Date of Admission: Apr 21, 2025 Patient Identification: : 2 Para: 0 EDC: Apr 22, 2025 Chief Complaints: Reason for admission: induction of labor Indication for induction: medical complication Other reason for admission: Induction of labor for Oligohydramnios Admission Nurse Assessment Rev: Yes History of Present Complaints L&D Admission Note 04/21/2025 @ 2215 30 y/o (0,0,1,0) @ 39w6d EGA presents to the Place for scheduled IOL for Oligohydramnios. Normal movements, no leakage of fluid or vaginal bleeding. Received care with Dr Esteves LMP: 07/16/2024 EDC: 04/22/2025 SNP HPI care with Dr Esteves. labs Blood Type: A positive Rubella : Immune GBS Status : Negative Wt gain in : 40 Lbs - complicated by oligohydramnios and HSV outbreak 32 weeks GA Last OB US Date: 04/19 BETHANY 6.0 EFW: 3175 grams / 7lb 0oz Past Medical Hx: HSV / 5150 Hold 2016 Past Surgical Hx: Deviated Septum repair Denies IPV currently OB: SAB G#1 Current Medications: PNV, Acyclovir 500 mg daily Social Hist: IPV in the past Physical Exam A&O x3, Well groomed Afebrile, VSS Heart & Lungs: Normal sound Abdomen: Gravid non- tender, fundal ht: Cephalic presentation by Frank maneuvers EFW SVE : CX 70/-1 Cephalic presentation Perineal visual Inspections, no sores or signs of cluster sores noted on the perineal area. Assessment 30 y/o (0,0,1,0) IUP 39w6d Admitted for Induction of labor for oligohydramnios FHR baseline 145 bpm, mod variability , Accelerations present, no deceleration; Category 1 tracing Occasional contractions SVE /70/-1 with intact membranes Plan Plan of care discussed with Patient and partner / family IOL process, cervical ripening with medication, cervical ripening balloon, oxytocin etc including the risks, benefits and all her options including primary Section discussed with the patient & partner. The patient wishes to proceed with trial of vaginal delivery. Process, Risks, benefits, of available management options discussed, Internal monitoring of UCs & FHT, AROM, amnioinfusion etc only when indicated EFM per policy & protocol Patient agrees to starting with Cervical Ripening balloon at this time; with possible conjunction of misoprostol 25 mcg vaginal IVF hydration IV analgesia for latent labor Epidural once CRB has been discharged Benjamin Cervical Ripening balloon placed 2230 with 80 Ml Uterine Fentanyl 50 mcg with 4 mg Zofran given for cramping post procedure Informed Consent obtained Consent for possible blood transfusion obtained. All questions answered. Encourage ambulation and/exercises / frequent position change to facilitate labor & descent Supportive care Anticipate Past Medical History Cardiac: No pertinent Hx Pulmonary: No pertinent Hx Central Nervous System: No pertinent Hx GI: No pertinent Hx Hemotology/Oncology: No pertinent Hx Hepatobiliary: No pertinent Hx Psychiatric: Other (History of Substance use was hospitilized 5149) Musculoskeletal: No pertinent Hx Rheumotologic: No pertinent Hx Infectious Disease: Herpes simplex 2 ENT: No pertinent Hx Renal/: No pertinent Hx Endocrine: No pertinent Hx Dermatology: No pertinent Hx Past Surgical History: Other (Deviated Nasal Septum ) OB History OB History Care: Good Care Ultrasounds: Normal mid trimester US Obstetrical Complications: None Medical Complications: None Allergies: Coded Allergies: NO KNOWN ALLERGIES (Unverified , 09/29/24) Home Meds Active Scripts Acetaminophen (Acetaminophen) 500 Mg Tab, 500 MG PO Q6HP PRN for 10 Days, #40 TAB 0 Refills Prov:TINO CORRIGAN DATA ENTRY EMAIL PROCESSOR 09/29/24 Cephalexin Monohydrate (Cephalexin) 500 Mg Cap, 1 CAP PO QID for 5 Days, #20 CAP 0 Refills Prov:TINO CORRIGAN DATA ENTRY EMAIL PROCESSOR 09/29/24 Reported Medications Vit W/ Ferrous Fumara ( One Daily) Daily Tab, 1 TAB PO DAILY, #90 TAB 3 Refills 04/20/25 Current Medications Current Medications Medications (Trade) Dose Ordered Sig/Kalyani Route PRN Reason Start Time Stop Time Status Last Admin Lactated Ringer's 1,000 ml @ 125 mls/hr Q8H IV 04/21/25 21:00 Witraul Cait (Tucks) 1 pad PRN PRN TOP PERINEAL AREA DISCOMFORT 04/21/25 21:00 Sodium Lauryl Sulfate (Phisoderm) 240 ml PRN PRN TOP PERINEAL AREA DISCOMFORT 04/21/25 21:00 Benzocaine (Dermoplast) 1 applic PRN PRN TOP PERINEAL AREA DISCOMFORT 04/21/25 21:00 Butorphanol Tartrate (Stadol Injection) 1 mg Q4HPRN PRN IV MODERATE PAIN (4-6 PAIN SCALE) 04/21/25 21:00 Butorphanol Tartrate (Stadol Injection) 2 mg Q4HPRN PRN IV SEVERE PAIN (7-10 PAIN SCALE) 04/21/25 21:00 Misoprostol (Cytotec) 50 mcg Q4HPRN PRN PO CERVICAL RIPENING 04/21/25 21:00 Lidocaine HCl (Xylocaine) 20 ml ONCE PRN IJ PERINEAL AREA DISCOMFORT 04/21/25 21:00 Family & Social History Family/Social History Past Family/Social History: Non Contributory Blood Type: A+ Rubella: immune RPR/VDRL: Negative GBS Status: Negative HBsAG: Negative Review of Systems Constitutional: No symptom reported Ears, Nose, & Throat: No symptom reported Eyes: No symptom reported Pulmonary/Respiratory: No symptom reported Cardiovascular: No symptom reported Gastrointestinal: No symptom reported Genitourinary: No symptom reported Musculoskeletal: No symptom reported Skin: No symptom reported Psychiatric: No symptom reported Endocrine: No symptom reported Hemotologic/Lymphatic: No symptom reported OB Admission Exam Physical Exam HEENT: NCAT Heart: Rhythm Normal Abdomen: Gravid Extremities: Normal Reflexes: Normal Cervical Dilatation: 1cm Effacement: 75% Station: -1 Membranes: Intact Heart Rate: 150's Accelerations: Accelerations Present Decelerations: No Decelerations Short Term Variability: Present Longterm Variability: Average (6-25) Contractions on Admission: < 5 Minutes Apart Frequency of Contractions: Occasional Duration: 40-50 seconds Intensity: Mild OB Plan Plan Admitting Diagnosis: IDUCTION OF LABOR FOR OLIGOHYDRAMNIOS Plan: Induction Induction Methd: Misoprostol protocol Other Plan: Cervical Ripening Balloon Visit Coding OBGYN Date of Service: Apr 21, 2025 Billing Provider: LEE KIM CNM ACCOUNTING OFFICE MANAGER Common Visit Codes: [id number] OBS CARE (LOW), [id number] INP/OBS CARE (HIGH) [facility] 22:03
[2025-04-21 22:15] LABS: Alanine Aminotransferase 13 U/L (7-40); Albumin 3.7 g/dL (3.2-4.8); Anion Gap 13 (5-15); BUN/Creatinine Ratio 11.9 (10.0-20.0); Calcium 9.0 mg/dL (8.7-10.4); Chloride 107 mmol/L (98-107); Potassium 3.8 mmol/L (3.5-5.1); Sodium 139 mmol/L (136-145); Total Protein 6.3 g/dL (5.7-8.2)
[2025-04-21 22:20] LABS: Hematocrit 32.9 % (36.0-46.0); Hemoglobin 10.9 g/dL (12.2-16.2); Mean Corpuscular Hemoglobin 28.0 pg (28.0-32.0); Mean Corpuscular Volume 84.6 fL (80.0-100.0); Nucleated Red Blood Cells % 0.1 %
[2025-04-21 22:26] LABS: INR 0.9 (0.9-1.15); Partial Thromboplastin Time 26.6 SEC (24.5-34.5); Prothrombin Time 9.6 sec (9.3-11.8)
[2025-04-21 22:34] LABS: Urine Protein, UAD Negative (Negative)
[2025-04-21 22:36] LABS: Amphetamine Screen, Urine Neg (NEGATIVE); Barbiturate Scree,Urine Neg (NEGATIVE); Benzodiazephine Screen, Urine Neg (NEGATIVE); Cannabinoid Screen, Urine Neg (NEGATIVE); Cocaine Screen, Urine Neg (NEGATIVE); Opiate Scree,Urine Neg (NEGATIVE); Phencyclidine Screen, Urine Neg (NEGATIVE)
[2025-04-21 22:36] LABS: Alkaline Phosphatase 166 U/L (46-116); Bilirubin, Total 0.3 mg/dL (0.2-1.0); Blood Urea Nitrogen 8 mg/dL (9-23); Carbon Dioxide 19 mmol/L (20-31); Glucose 117 mg/dL (74-106)
[2025-04-21] MEDS: ONDANSETRON HCL 4 MG/2 ML VIAL IV PRN (23:10)
[2025-04-21] MEDS: fentaNYL CITRATE 100 MCG/2 ML VL IV ONE (23:12)
--- NOTE | 2025-04-22 00:21 | DVHPN2 ---
CNM Labor Progress Note Date and Time Seen Date Seen: Apr 22, 2025 Time Seen: 00:05 Subjective Patient reports: Feels better Subjective Comment Rounding Note 30 y/o (0,0,1,0) @ 40w0d EGA Induction of labor for Oligohydramnios LMP: 07/16/2024 EDC: 04/22/2025 SNP HPI care with Dr Esteves. labs Blood Type: A positive Rubella : Immune GBS Status : Negative Wt gain in : 40 Lbs - complicated by oligohydramnios and HSV outbreak 32 weeks GA Last OB US Date: 04/19 BETHANY 6.0 EFW: 3175 grams / 7lb 0oz Past Medical Hx: HSV / 5150 Hold 2017 Past Surgical Hx: Deviated Septum repair Denies IPV currently OB: SAB G#1 Current Medications: PNV, Acyclovir 500 mg daily Social Hist: IPV in the past Objective Vital Signs Vital Signs Date Time Temp Pulse Resp B/P (MAP) Pulse Ox O2 Delivery O2 Flow Rate FiO2 04/21/25 23:12 107/76 Monitoring Method Monitoring Method: External Heart Rate Heart Rate Baseline: 145 Heart Rate Variability: Moderate Presence of FHR Accelerations: Yes Presence of FHR Decelerations: No Changes in Trends of Patterns: No Are all 5 Components of the FH: Yes Contractions Contractions Frequency: Occasional Duration of Contraction: 60 Contractions Intensity: Mild Contractions Resting Tone: Relaxed Membranes Membranes: Intact Vaginal Exam Vag Exam Deferred: No Vaginal Exam Presentation: VTX Vaginal Exam Show: Moderate Medications Medications - Pitocin: No Medications - Pain Medications: Fentanyl 50 mcg IVP Medication - Other Zofran 4 mg IVP misoprostol 25 mcg vaginal insertion Lab Results Lab Results Vital Signs Date Time Temp Pulse Resp B/P (MAP) Pulse Ox O2 Delivery O2 Flow Rate FiO2 04/21/25 23:12 107/76 Current Medications Medications (Trade) Dose Ordered Sig/Kalyani Start Time Stop Time Status Last Admin Dose Admin Lactated Ringer's 1,000 ml @ 125 mls/hr Q8H 04/21/25 21:00 Kristen Chavira (Tucks) 1 pad PRN PRN 04/21/25 21:00 Sodium Lauryl Sulfate (Phisoderm) 240 ml PRN PRN 04/21/25 21:00 Benzocaine (Dermoplast) 1 applic PRN PRN 04/21/25 21:00 Butorphanol Tartrate (Stadol Injection) 1 mg Q4HPRN PRN 04/21/25 21:00 Butorphanol Tartrate (Stadol Injection) 2 mg Q4HPRN PRN 04/21/25 21:00 Misoprostol (Cytotec) 50 mcg Q4HPRN PRN 04/21/25 21:00 Lidocaine HCl (Xylocaine) 20 ml ONCE PRN 04/21/25 21:00 Misoprostol (Cytotec) 25 mcg Q6HPRN PRN 04/21/25 22:15 04/22/25 00:02 25 MCG Fentanyl Citrate 50 mcg ONCE ONCE 04/21/25 22:45 04/21/25 22:49 DC 04/21/25 23:12 50 MCG Ondansetron HCl (Zofran) 4 mg Q6HPRN PRN 04/21/25 22:45 04/21/25 23:10 4 MG Laboratory Tests Test 04/21/25 21:19 04/21/25 20:45 Range/Units White Blood Count 9.2 4.4-10.8 10^3/uL Red Blood Count 3.89 L 4.0-5.20 10^6/uL Hemoglobin 10.9 L 12.2-16.2 g/dL Hematocrit 32.9 L 36.0-46.0 % Mean Corpuscular Volume 84.6 80.0-100.0 fL Mean Corpuscular Hemoglobin 28.0 28.0-32.0 pg Mean Corpuscular Hemoglobin Concent 33.1 32.0-36.0 g/dL Red Cell Distribution Width 15.4 H 11.8-14.3 % Platelet Count 301 140-450 10^3/uL Mean Platelet Volume 8.3 6.9-10.8 fL Neutrophils (%) (Auto) 73.4 37.0-80.0 % Lymphocytes (%) (Auto) 19.9 10.0-50.0 % Monocytes (%) (Auto) 5.1 0.0-12.0 % Eosinophils (%) (Auto) 1.3 0.0-7.0 % Basophils (%) (Auto) 0.3 0.0-2.0 % Neutrophils # (Auto) 6.7 1.6-8.6 10 ^3/uL Lymphocytes # (Auto) 1.8 0.4-5.4 10 ^3/uL Monocytes # (Auto) 0.5 0-1.3 10 ^3/uL Eosinophils # (Auto) 0.1 0-0.8 10 ^3/uL Basophils # (Auto) 0 0-0.2 10 ^3/uL Nucleated Red Blood Cells 0.1 % Prothrombin Time 9.6 9.3-11.8 sec Prothrombin Time INR 0.90 0.9-1.15 Activated Partial Thromboplast Time 26.6 24.5-34.5 SEC Sodium Level 139 136-145 mmol/L Potassium Level 3.8 3.5-5.1 mmol/L Chloride Level 107 98-107 mmol/L Carbon Dioxide Level 19 L 20-31 mmol/L Anion Gap 13 5-15 Blood Urea Nitrogen 8 L 9-23 mg/dL Creatinine 0.67 0.550-1.02 mg/dL Glomerular Filtration Rate Calc 122 >90 mL/min BUN/Creatinine Ratio 11.9 10.0-20.0 Serum Glucose 117 H 74-106 mg/dL Calcium Level 9.0 8.7-10.4 mg/dL Total Bilirubin 0.3 0.2-1.0 mg/dL Aspartate Amino Transferase (AST) 15 13-40 U/L Alanine Aminotransferase (ALT) 13 7-40 U/L Alkaline Phosphatase 166 H 46-116 U/L Total Protein 6.3 5.7-8.2 g/dL Albumin 3.7 3.2-4.8 g/dL Treponema pallidum Antibody Non-reactive Negative Urine Color Yellow Yellow Urine Clarity Clear Clear Urine pH 5.5 5.0-9.0 Urine Specific [place] 1.025 1.001-1.035 Urine Protein Negative Negative Urine Ketones Trace Negative Urine Blood Negative Negative /uL Urine Nitrite Negative Negative Urine Bilirubin Negative Negative Urine Urobilinogen Normal Negative mg/dL Urine Leukocyte Esterase 1+ Negative /uL Urine RBC 1 0 - 4 /hpf Urine Microscopic WBC 4 0-5 /HPF Urine Squamous Epithelial Cells Few <5 /hpf Urine Bacteria Few H None Seen /hpf Urine Mucus Few None Seen Urine Glucose Normal Normal mg/dL Urine Opiates Screen Neg NEGATIVE Urine Fentanyl Screen Neg NEGATIVE Urine Barbiturates Screen Neg NEGATIVE Urine Phencyclidine Screen Neg NEGATIVE Urine Amphetamines Screen Neg NEGATIVE Urine Benzodiazepines Screen Neg NEGATIVE Urine Cocaine Screen Neg NEGATIVE Urine Cannabinoids Screen Neg NEGATIVE Assessment Assessment Assessment 30 y/o (0,0,1,0) IUP 40w0d Admitted for Induction of labor for oligohydramnios FHR baseline 145 bpm, mod variability , Accelerations present, no deceleration; Category 1 tracing Occasional contractions SVE 3 CM with CRB Currently in place Plan Plan Received Fentanyl 50 mcg with 4 mg Zofran for pain post procedure Placed 25 mcg misoprostol vaginal with CRB in place for Induction method EFM for two hours post Misoprostol may ambulate in unit per Intermittent EFM per policy May have Regular diet Informed Consent obtained Consent for possible blood transfusion obtained. All questions answered. Encourage ambulation and/exercises / frequent position change to facilitate labor & descent Supportive care Anticipate Plan discussed with: Patient, Spouse Visit Coding OBGYN Date of Service: Apr 22, 2025 Billing Provider: LEE KIM CNM PRE OWNED SALES MANAGER Common Visit Codes: [id number] [facility]BS CARE (LOW) [facility]21
--- NOTE | 2025-04-22 04:38 | DVHPN2 ---
CNM Labor Progress Note Date and Time Seen Date Seen: Apr 22, 2025 Time Seen: 04:15 Subjective Patient reports: No new complaints Subjective Comment Rounding Note 30 y/o (0,0,1,0) @ 40w0d EGA Induction of labor for Oligohydramnios LMP: 07/16/2024 EDC: 04/22/2025 SNLMP [address] care [address] Dr Esteves. labs Blood Type: A positive Rubella : Immune GBS Status : Negative Wt gain in : 40 Lbs - complicated by oligohydramnios and HSV outbreak 32 weeks GA Last OB US Date: 04/19 BETHANY 6.0 EFW: 3175 grams / 7lb 0oz Past Medical Hx: HSV / 5150 Hold 2017 Past Surgical Hx: Deviated Septum repair Denies IPV currently OB: SAB G#1 Current Medications: PNV, Acyclovir 500 mg daily Social Hist: IPV in the past Objective Vital Signs Vital Signs Date Time Temp Pulse Resp B/P (MAP) Pulse Ox O2 Delivery O2 Flow Rate FiO2 04/21/25 23:12 107/76 Current Medications Medications (Trade) Dose Ordered Sig/Kalyani Start Time Stop Time Status Last Admin Dose Admin Lactated Ringer's 1,000 ml @ 125 mls/hr Q8H 04/21/25 21:00 Witraul Cait (Tucks) 1 pad PRN PRN 04/21/25 21:00 Sodium Lauryl Sulfate (Phisoderm) 240 ml PRN PRN 04/21/25 21:00 Benzocaine (Dermoplast) 1 applic PRN PRN 04/21/25 21:00 Butorphanol Tartrate (Stadol Injection) 1 mg Q4HPRN PRN 04/21/25 21:00 Butorphanol Tartrate (Stadol Injection) 2 mg Q4HPRN PRN 04/21/25 21:00 Misoprostol (Cytotec) 50 mcg Q4HPRN PRN 04/21/25 21:00 Lidocaine HCl (Xylocaine) 20 ml ONCE PRN 04/21/25 21:00 Misoprostol (Cytotec) 25 mcg Q6HPRN PRN 04/21/25 22:15 04/22/25 00:42 DC 04/22/25 00:02 25 MCG Fentanyl Citrate 50 mcg ONCE ONCE 04/21/25 22:45 04/21/25 22:49 DC 04/21/25 23:12 50 MCG Ondansetron HCl (Zofran) 4 mg Q6HPRN PRN 04/21/25 22:45 04/21/25 23:10 4 MG Misoprostol (Cytotec) 25 mcg Q4HPRN PRN 04/22/25 04:05 Laboratory Tests Test 04/21/25 21:19 04/21/25 20:45 Range/Units White Blood Count 9.2 4.4-10.8 10^3/uL Red Blood Count 3.89 L 4.0-5.20 10^6/uL Hemoglobin 10.9 L 12.2-16.2 g/dL Hematocrit 32.9 L 36.0-46.0 % Mean Corpuscular Volume 84.6 80.0-100.0 fL Mean Corpuscular Hemoglobin 28.0 28.0-32.0 pg Mean Corpuscular Hemoglobin Concent 33.1 32.0-36.0 g/dL Red Cell Distribution Width 15.4 H 11.8-14.3 % Platelet Count 301 140-450 10^3/uL Mean Platelet Volume 8.3 6.9-10.8 fL Neutrophils (%) (Auto) 73.4 37.0-80.0 % Lymphocytes (%) (Auto) 19.9 10.0-50.0 % Monocytes (%) (Auto) 5.1 0.0-12.0 % Eosinophils (%) (Auto) 1.3 0.0-7.0 % Basophils (%) (Auto) 0.3 0.0-2.0 % Neutrophils # (Auto) 6.7 1.6-8.6 10 ^3/uL Lymphocytes # (Auto) 1.8 0.4-5.4 10 ^3/uL Monocytes # (Auto) 0.5 0-1.3 10 ^3/uL Eosinophils # (Auto) 0.1 0-0.8 10 ^3/uL Basophils # (Auto) 0 0-0.2 10 ^3/uL Nucleated Red Blood Cells 0.1 % Prothrombin Time 9.6 9.3-11.8 sec Prothrombin Time INR 0.90 0.9-1.15 Activated Partial Thromboplast Time 26.6 24.5-34.5 SEC Sodium Level 139 136-145 mmol/L Potassium Level 3.8 3.5-5.1 mmol/L Chloride Level 107 98-107 mmol/L Carbon Dioxide Level 19 L 20-31 mmol/L Anion Gap 13 5-15 Blood Urea Nitrogen 8 L 9-23 mg/dL Creatinine 0.67 0.550-1.02 mg/dL Glomerular Filtration Rate Calc 122 >90 mL/min BUN/Creatinine Ratio 11.9 10.0-20.0 Serum Glucose 117 H 74-106 mg/dL Calcium Level 9.0 8.7-10.4 mg/dL Total Bilirubin 0.3 0.2-1.0 mg/dL Aspartate Amino Transferase (AST) 15 13-40 U/L Alanine Aminotransferase (ALT) 13 7-40 U/L Alkaline Phosphatase 166 H 46-116 U/L Total Protein 6.3 5.7-8.2 g/dL Albumin 3.7 3.2-4.8 g/dL Treponema pallidum Antibody Non-reactive Negative Urine Color Yellow Yellow Urine Clarity Clear Clear Urine pH 5.5 5.0-9.0 Urine Specific [place] 1.025 1.001-1.035 Urine Protein Negative Negative Urine Ketones Trace Negative Urine Blood Negative Negative /uL Urine Nitrite Negative Negative Urine Bilirubin Negative Negative Urine Urobilinogen Normal Negative mg/dL Urine Leukocyte Esterase 1+ Negative /uL Urine RBC 1 0 - 4 /hpf Urine Microscopic WBC 4 0-5 /HPF Urine Squamous Epithelial Cells Few <5 /hpf Urine Bacteria Few H None Seen /hpf Urine Mucus Few None Seen Urine Glucose Normal Normal mg/dL Urine Opiates Screen Neg NEGATIVE Urine Fentanyl Screen Neg NEGATIVE Urine Barbiturates Screen Neg NEGATIVE Urine Phencyclidine Screen Neg NEGATIVE Urine Amphetamines Screen Neg NEGATIVE Urine Benzodiazepines Screen Neg NEGATIVE Urine Cocaine Screen Neg NEGATIVE Urine Cannabinoids Screen Neg NEGATIVE Monitoring Method Monitoring Method: External Heart Rate Heart Rate Baseline: 140 Heart Rate Variability: Moderate Presence of FHR Accelerations: Yes Presence of FHR Decelerations: No Changes in Trends of Patterns: No Are all 5 Components of the FH: Yes Contractions Contractions Frequency: Occasional Duration of Contraction: 90 Contractions Intensity: Moderate Contractions Resting Tone: Relaxed Membranes Membranes: Intact Vaginal Exam Vag Exam Deferred: No Vaginal Exam Dilation: 3 (3.5) Vaginal Exam Effacement: 70 Vaginal Exam Station: -1 Vaginal Exam Presentation: VTX Vaginal Exam Show: Moderate Medications Medications - Pitocin: No Medication - Epidural: No Medication - Other Misoprostol 25 mcg vag supp Lab Results Lab Results Vital Signs Date Time Temp Pulse Resp B/P (MAP) Pulse Ox O2 Delivery O2 Flow Rate FiO2 04/21/25 23:12 107/76 Current Medications Medications (Trade) Dose Ordered Sig/Kalyani Start Time Stop Time Status Last Admin Dose Admin Lactated Ringer's 1,000 ml @ 125 mls/hr Q8H 04/21/25 21:00 Kristen Chavira (Tucks) 1 pad PRN PRN 04/21/25 21:00 Sodium Lauryl Sulfate (Phisoderm) 240 ml PRN PRN 04/21/25 21:00 Benzocaine (Dermoplast) 1 applic PRN PRN 04/21/25 21:00 Butorphanol Tartrate (Stadol Injection) 1 mg Q4HPRN PRN 04/21/25 21:00 Butorphanol Tartrate (Stadol Injection) 2 mg Q4HPRN PRN 04/21/25 21:00 Misoprostol (Cytotec) 50 mcg Q4HPRN PRN 04/21/25 21:00 Lidocaine HCl (Xylocaine) 20 ml ONCE PRN 04/21/25 21:00 Misoprostol (Cytotec) 25 mcg Q6HPRN PRN 04/21/25 22:15 04/22/25 00:42 DC 04/22/25 00:02 25 MCG Fentanyl Citrate 50 mcg ONCE ONCE 04/21/25 22:45 04/21/25 22:49 DC 04/21/25 23:12 50 MCG Ondansetron HCl (Zofran) 4 mg Q6HPRN PRN 04/21/25 22:45 04/21/25 23:10 4 MG Misoprostol (Cytotec) 25 mcg Q4HPRN PRN 04/22/25 04:05 Laboratory Tests Test 04/21/25 21:19 04/21/25 20:45 Range/Units White Blood Count 9.2 4.4-10.8 10^3/uL Red Blood Count 3.89 L 4.0-5.20 10^6/uL Hemoglobin 10.9 L 12.2-16.2 g/dL Hematocrit 32.9 L 36.0-46.0 % Mean Corpuscular Volume 84.6 80.0-100.0 fL Mean Corpuscular Hemoglobin 28.0 28.0-32.0 pg Mean Corpuscular Hemoglobin Concent 33.1 32.0-36.0 g/dL Red Cell Distribution Width 15.4 H 11.8-14.3 % Platelet Count 301 140-450 10^3/uL Mean Platelet Volume 8.3 6.9-10.8 fL Neutrophils (%) (Auto) 73.4 37.0-80.0 % Lymphocytes (%) (Auto) 19.9 10.0-50.0 % Monocytes (%) (Auto) 5.1 0.0-12.0 % Eosinophils (%) (Auto) 1.3 0.0-7.0 % Basophils (%) (Auto) 0.3 0.0-2.0 % Neutrophils # (Auto) 6.7 1.6-8.6 10 ^3/uL Lymphocytes # (Auto) 1.8 0.4-5.4 10 ^3/uL Monocytes # (Auto) 0.5 0-1.3 10 ^3/uL Eosinophils # (Auto) 0.1 0-0.8 10 ^3/uL Basophils # (Auto) 0 0-0.2 10 ^3/uL Nucleated Red Blood Cells 0.1 % Prothrombin Time 9.6 9.3-11.8 sec Prothrombin Time INR 0.90 0.9-1.15 Activated Partial Thromboplast Time 26.6 24.5-34.5 SEC Sodium Level 139 136-145 mmol/L Potassium Level 3.8 3.5-5.1 mmol/L Chloride Level 107 98-107 mmol/L Carbon Dioxide Level 19 L 20-31 mmol/L Anion Gap 13 5-15 Blood Urea Nitrogen 8 L 9-23 mg/dL Creatinine 0.67 0.550-1.02 mg/dL Glomerular Filtration Rate Calc 122 >90 mL/min BUN/Creatinine Ratio 11.9 10.0-20.0 Serum Glucose 117 H 74-106 mg/dL Calcium Level 9.0 8.7-10.4 mg/dL Total Bilirubin 0.3 0.2-1.0 mg/dL Aspartate Amino Transferase (AST) 15 13-40 U/L Alanine Aminotransferase (ALT) 13 7-40 U/L Alkaline Phosphatase 166 H 46-116 U/L Total Protein 6.3 5.7-8.2 g/dL Albumin 3.7 3.2-4.8 g/dL Treponema pallidum Antibody Non-reactive Negative Urine Color Yellow Yellow Urine Clarity Clear Clear Urine pH 5.5 5.0-9.0 Urine Specific [place] 1.025 1.001-1.035 Urine Protein Negative Negative Urine Ketones Trace Negative Urine Blood Negative Negative /uL Urine Nitrite Negative Negative Urine Bilirubin Negative Negative Urine Urobilinogen Normal Negative mg/dL Urine Leukocyte Esterase 1+ Negative /uL Urine RBC 1 0 - 4 /hpf Urine Microscopic WBC 4 0-5 /HPF Urine Squamous Epithelial Cells Few <5 /hpf Urine Bacteria Few H None Seen /hpf Urine Mucus Few None Seen Urine Glucose Normal Normal mg/dL Urine Opiates Screen Neg NEGATIVE Urine Fentanyl Screen Neg NEGATIVE Urine Barbiturates Screen Neg NEGATIVE Urine Phencyclidine Screen Neg NEGATIVE Urine Amphetamines Screen Neg NEGATIVE Urine Benzodiazepines Screen Neg NEGATIVE Urine Cocaine Screen Neg NEGATIVE Urine Cannabinoids Screen Neg NEGATIVE Assessment Assessment Assessment 30 y/o (0,0,1,0) IUP 40w0d Admitted for Induction of labor for oligohydramnios FHR baseline 145 bpm, mod variability , Accelerations present, no deceleration; Category 1 tracing Occasional contractions CRB D/C per [place] Recheck SVE 3.5/70/-1 with moderate amount of bloody show Gomes score in Primigravida 8 Plan Plan Second dose of misoprostol 25 mcg vagg inserted @ [address] the misoprostol with a Gomes score 8, due to the consistency of the cervix Will start Pitocin after the second dose of misoprostol as a method of induction post 4 hours of placement. Patient agreed with the plan and verbalizes understanding Informed Consent obtained Consent for possible blood transfusion obtained. All questions answered. Encourage ambulation and/exercises / frequent position change to facilitate labor & descent Supportive care Anticipate Plan discussed with: Patient Visit Coding OBGYN Date of Service: Apr 22, 2025 Billing Provider: LEE KIM CNM DIGITAL ADVISOR Common Visit Codes: [id number] OBS CARE (LOW), [id number] INP/OBS CARE (HIGH) LEE KIM [facility] 2024 04:38
[2025-04-22] MEDS: LACTATED RINGER'S 1,000 ML IV SCH (07:36)
[2025-04-22] MEDS: fentaNYL CITRATE 100 MCG/2 ML VL ONE (08:00)
[2025-04-22] MEDS: LIDOCAINE HCL 2 %PF INJ 10ML AMP IJ ONE (08:00)
[2025-04-22] MEDS: NALOXONE HCL 0.4 MG/ML VIAL IV ONE (08:00)
[2025-04-22] MEDS ORDERED: TERBUTALINE SULFATE 1 MG/ML 1ML VIAL SC PRN (08:00)
--- NOTE | 2025-04-22 08:44 | EPIDURAL ---
Anesthesia Procedural Note - Epidural Informed consent obtained?: Yes Medication Administered: Fentanyl 100 mcg Sterile prept drape: Yes Spinal level of insertion: L3-L4 Test dose of lidocaine & Epine: Negative Infusion started: Yes Start time: 08:00 End time: 08:30 Procedure description Procedure description: Called for labor analgesia. Patient examined, chart reviewed, history taken. Patient is at 39+6 weeks here for induction of labor for oligohydramnios. Patient is 5cm and would like an epidural prior to initiation of pitocin. Informed consent for CSE obtained. Sitting position, sterile prep and drape. L4- 5 space infiltrated with 1% lido. BP 102/68 HR 68 spO2 98% Epidural needle placed with MIGUEL ANGEL at 5.5cm. 25G spinal needle +clear CSF. 15mcg fentanyl IT. BP 100/60 HR 67 spO2 98% Epidural catheter placed, immediately +heme. Catheter withdrawn and flushed, persistent +heme. Catheter removed. Patient re-prepped. L3-4 space infiltrated with 1% lido. Epidural needle placed with MIGUEL ANGEL at 5.5cm. Epidural catheter secured at 11cm. Aspiration and test dose (3cc 1.5% lido with epi) negative. BP 100/50 HR 66 spO2 99% 85 mcg fentanyl given via epidural. Patient comfortable. 0.2% ropivacaine infusions started. BP 98/58 HR 72 spO2 99% Will follow as needed. TAYLOR POTTS MD Apr 22, 2025 08:44
--- NOTE | 2025-04-22 08:53 | DVHPN2 ---
Chief Complaints Patient reports: No new complaints Nursing reports: No new complaints Objective Vitals Vital Signs Date Time Temp Pulse Resp B/P (MAP) Pulse Ox O2 Delivery O2 Flow Rate FiO2 04/21/25 23:12 107/76 Medications Current Medications Medications (Trade) Dose Ordered Sig/Kalyani Route PRN Reason Start Time Stop Time Status Last Admin Benzocaine (Dermoplast) 1 applic PRN PRN TOP PERINEAL AREA DISCOMFORT 04/21/25 21:00 Butorphanol Tartrate (Stadol Injection) 1 mg Q4HPRN PRN IV MODERATE PAIN (4-6 PAIN SCALE) 04/21/25 21:00 Butorphanol Tartrate (Stadol Injection) 2 mg Q4HPRN PRN IV SEVERE PAIN (7-10 PAIN SCALE) 04/21/25 21:00 Diphenhydramine HCl (Benadryl Injection) 25 mg Q4HP PRN IV FOR ITCHING 04/22/25 08:45 UNV Famotidine (Pepcid Injection) 20 mg Q12HR PRN IV FOR ITCHING 04/22/25 08:45 UNV Lactated Ringer's 1,000 ml @ 125 mls/hr Q8H IV 04/21/25 21:00 04/22/25 07:36 Lidocaine HCl (Xylocaine) 20 ml ONCE PRN IJ PERINEAL AREA DISCOMFORT 04/21/25 21:00 Misoprostol (Cytotec) 25 mcg Q4HPRN PRN VG IOL 04/22/25 04:05 04/22/25 04:13 Misoprostol (Cytotec) 50 mcg Q4HPRN PRN PO CERVICAL RIPENING 04/21/25 21:00 Ondansetron HCl (Zofran) 4 mg Q6HPRN PRN IV NAUSEA / VOMITING 04/21/25 22:45 04/21/25 23:10 Oxytocin 1,000 ml @ 6 ml/hr Q24H IV 04/22/25 08:00 Sodium Lauryl Sulfate (Phisoderm) 240 ml PRN PRN TOP PERINEAL AREA DISCOMFORT 04/21/25 21:00 Terbutaline Sulfate (Brethine Inj) 0.25 mg ONCE PRN SC Uterine tachysystole 04/22/25 08:00 Witch Cait (Tucks) 1 pad PRN PRN TOP PERINEAL AREA DISCOMFORT 04/21/25 21:00 Others ve-5cm/70/-2 post Studies Laboratory Tests 04/21/25 21:19 Test 04/21/25 21:19 Range/Units Serum Glucose 117 H 74-106 mg/dL Ass/Plan Assessment iol for oligo Plan start pitocin pt is recieving epidural Visit Coding OBGYN Date of Service: Apr 22, 2025 Billing Provider: ROSSI POMPA DO QUARTER SUPERVISOR Common Visit Codes: [id number] OBS CARE (HIGH) QUARTER SUPERVISOR Procedure Codes: 58157-89- NON-STRESS TEST ROSSI POMPA DO Apr 22, 2025 08:52
[2025-04-22] MEDS: FAMOTIDINE (10MG/ML) 2ML VL IV PRN (09:05)
[2025-04-22] MEDS: diphenhydrAMINE HCL 50 MG/1 ML VL IV PRN (09:05)
[2025-04-22] MEDS: ROPIVACAINE HCL 100 ML ONE ×2 (09:10→17:05)
[2025-04-22] MEDS: fentaNYL CITRATE 100 MCG/2 ML VL IV ONE (09:11)
[2025-04-22] MEDS: LACTATED RINGER'S 1,000 ML IV ONE (09:12)
[2025-04-22] MEDS: LACT. RINGERS/OXYTOCIN 20UNITS 1,000 ML IV SCH (11:00)
--- NOTE | 2025-04-22 20:49 | DVHPN2 ---
CNM Labor Progress Note Date and Time Seen Date Seen: Apr 22, 2025 Time Seen: 20:10 Subjective Patient reports: No new complaints Objective Vital Signs VSS Monitoring Method Monitoring Method: External Heart Rate Heart Rate Baseline: 135 Heart Rate Variability: Moderate Presence of FHR Accelerations: Yes Presence of FHR Decelerations: No Changes in Trends of Patterns: No Are all 5 Components of the FH: Yes Contractions Contractions Frequency: Other (2-4min) Duration of Contraction: 60 Contractions Intensity: Moderate Contractions Resting Tone: Relaxed Membranes Membranes: Ruptured Amniotic Fluid Color: UNDER CUTTING MACHINE OPERATOR Meconium Vaginal Exam Vag Exam Deferred: No Vaginal Exam Dilation: 7 Vaginal Exam Effacement: 80 Vaginal Exam Station: -1 Vaginal Exam Show: Moderate Medications Medications - Pitocin: Yes Medication - Epidural: Yes Lab Results Lab Results Vital Signs Date Time Temp Pulse Resp B/P (MAP) Pulse Ox O2 Delivery O2 Flow Rate FiO2 04/24/25 03:25 98.2 82 20 113/70 (84) 97 98.2 04/23/25 18:30 Room Air 04/23/25 07:00 0.0 I & O 04/24/25 07:00 Output Total 1800 ml Balance -1800 ml Output Urine Total 1800 ml # Voids 10 Current Medications Medications (Trade) Dose Ordered Sig/Kalyani Start Time Stop Time Status Last Admin Dose Admin Lactated Ringer's 1,000 ml @ 125 mls/hr Q8H 04/21/25 21:00 04/23/25 12:15 DC 04/22/25 15:54 125 MLS/HR Kristen Chavira (Tucks) 1 pad PRN PRN 04/21/25 21:00 04/23/25 08:28 1 PAD Sodium Lauryl Sulfate (Phisoderm) 240 ml PRN PRN 04/21/25 21:00 04/23/25 08:28 240 ML Benzocaine (Dermoplast) 1 applic PRN PRN 04/21/25 21:00 04/23/25 08:28 1 APPLIC Misoprostol (Cytotec) 25 mcg Q6HPRN PRN 04/21/25 22:15 04/22/25 00:42 DC 04/22/25 00:02 25 MCG Fentanyl Citrate 50 mcg ONCE ONCE 04/21/25 22:45 04/21/25 22:49 DC 04/21/25 23:12 50 MCG Ondansetron HCl (Zofran) 4 mg Q6HPRN PRN 04/21/25 22:45 04/22/25 23:00 4 MG Misoprostol (Cytotec) 25 mcg Q4HPRN PRN 04/22/25 04:05 04/23/25 12:15 DC 04/22/25 04:13 25 MCG Oxytocin 1,000 ml @ 6 ml/hr Q24H 04/22/25 08:00 04/23/25 12:15 DC 04/22/25 11:00 6 ML/HR Oxytocin 500 ml @ 999 mls/hr Q31M ONCE 04/22/25 08:00 04/22/25 08:30 DC 04/23/25 06:12 999 MLS/HR Oxytocin 500 ml @ 125 mls/hr Q4H ONCE 04/22/25 08:30 04/22/25 12:29 DC 04/23/25 06:12 125 MLS/HR Naloxone HCl (Narcan) 0.2 mg PRN ONCE 04/22/25 08:00 04/22/25 08:11 DC Ephedrine Sulfate (ePHEDrine SULFATE) 10 mg PRN ONCE 04/22/25 08:00 04/22/25 08:11 DC Fentanyl Citrate 100 mcg ONCE ONCE 04/22/25 08:00 04/22/25 08:11 DC 04/22/25 09:11 100 MCG Lidocaine HCl (Xylocaine-Pf 2% Injection) 10 ml ONCE ONCE 04/22/25 08:00 04/22/25 08:11 DC Lactated Ringer's 1,000 ml @ 1,000 mls/hr Q1H ONCE 04/22/25 08:00 04/22/25 08:59 DC 04/22/25 09:12 1,000 MLS/HR Famotidine (Pepcid Injection) 20 mg Q12HR PRN 04/22/25 08:45 04/22/25 09:05 20 MG Diphenhydramine HCl (Benadryl Injection) 25 mg Q4HP PRN 04/22/25 08:45 04/22/25 09:05 25 MG Cefazolin Sodium/ Dextrose 50 ml @ 50 mls/hr ONCE ONCE 04/23/25 00:00 04/23/25 00:59 DC 04/23/25 00:16 50 MLS/HR Cefazolin Sodium 50 ml @ 100 mls/hr Q8HR 04/23/25 08:00 04/23/25 08:25 DC Ibuprofen (Motrin Tablet) 600 mg Q6HP PRN 04/23/25 08:15 04/24/25 00:08 600 MG Acetaminophen (Tylenol Tablet) 650 mg Q4HP PRN 04/23/25 08:15 04/24/25 03:16 650 MG Docusate Sodium (Colace Capsule) 200 mg HS 04/23/25 22:00 04/24/25 00:07 200 MG Cephalexin (Keflex Capsule) 500 mg Q6HR 04/23/25 12:00 04/24/25 00:07 500 MG Laboratory Tests Test 04/21/25 21:19 04/21/25 20:45 Range/Units White Blood Count 9.2 4.4-10.8 10^3/uL Red Blood Count 3.89 L 4.0-5.20 10^6/uL Hemoglobin 10.9 L 12.2-16.2 g/dL Hematocrit 32.9 L 36.0-46.0 % Mean Corpuscular Volume 84.6 80.0-100.0 fL Mean Corpuscular Hemoglobin 28.0 28.0-32.0 pg Mean Corpuscular Hemoglobin Concent 33.1 32.0-36.0 g/dL Red Cell Distribution Width 15.4 H 11.8-14.3 % Platelet Count 301 140-450 10^3/uL Mean Platelet Volume 8.3 6.9-10.8 fL Neutrophils (%) (Auto) 73.4 37.0-80.0 % Lymphocytes (%) (Auto) 19.9 10.0-50.0 % Monocytes (%) (Auto) 5.1 0.0-12.0 % Eosinophils (%) (Auto) 1.3 0.0-7.0 % Basophils (%) (Auto) 0.3 0.0-2.0 % Neutrophils # (Auto) 6.7 1.6-8.6 10 ^3/uL Lymphocytes # (Auto) 1.8 0.4-5.4 10 ^3/uL Monocytes # (Auto) 0.5 0-1.3 10 ^3/uL Eosinophils # (Auto) 0.1 0-0.8 10 ^3/uL Basophils # (Auto) 0 0-0.2 10 ^3/uL Nucleated Red Blood Cells 0.1 % Prothrombin Time 9.6 9.3-11.8 sec Prothrombin Time INR 0.90 0.9-1.15 Activated Partial Thromboplast Time 26.6 24.5-34.5 SEC Sodium Level 139 136-145 mmol/L Potassium Level 3.8 3.5-5.1 mmol/L Chloride Level 107 98-107 mmol/L Carbon Dioxide Level 19 L 20-31 mmol/L Anion Gap 13 5-15 Blood Urea Nitrogen 8 L 9-23 mg/dL Creatinine 0.67 0.550-1.02 mg/dL Glomerular Filtration Rate Calc 122 >90 mL/min BUN/Creatinine Ratio 11.9 10.0-20.0 Serum Glucose 117 H 74-106 mg/dL Calcium Level 9.0 8.7-10.4 mg/dL Total Bilirubin 0.3 0.2-1.0 mg/dL Aspartate Amino Transferase (AST) 15 13-40 U/L Alanine Aminotransferase (ALT) 13 7-40 U/L Alkaline Phosphatase 166 H 46-116 U/L Total Protein 6.3 5.7-8.2 g/dL Albumin 3.7 3.2-4.8 g/dL Treponema pallidum Antibody Non-reactive Negative Urine Color Yellow Yellow Urine Clarity Clear Clear Urine pH 5.5 5.0-9.0 Urine Specific [place] 1.025 1.001-1.035 Urine Protein Negative Negative Urine Ketones Trace Negative Urine Blood Negative Negative /uL Urine Nitrite Negative Negative Urine Bilirubin Negative Negative Urine Urobilinogen Normal Negative mg/dL Urine Leukocyte Esterase 1+ Negative /uL Urine RBC 1 0 - 4 /hpf Urine Microscopic WBC 4 0-5 /HPF Urine Squamous Epithelial Cells Few <5 /hpf Urine Bacteria Few H None Seen /hpf Urine Mucus Few None Seen Urine Glucose Normal Normal mg/dL Urine Opiates Screen Neg NEGATIVE Urine Fentanyl Screen Neg NEGATIVE Urine Barbiturates Screen Neg NEGATIVE Urine Phencyclidine Screen Neg NEGATIVE Urine Amphetamines Screen Neg NEGATIVE Urine Benzodiazepines Screen Neg NEGATIVE Urine Cocaine Screen Neg NEGATIVE Urine Cannabinoids Screen Neg NEGATIVE Assessment Assessment > IUP at 40w 1d > Oligohydramnios > IOL for Above > Category I FHR Tracing > h/o HSV; no active lesion Plan Plan > Continue Oxytocin > Continue EFM > Intrauterine resuscitation PRN > Frequent position change to facilitate labor and descent > Supportive care > Anticipate Plan discussed with: Patient, Spouse Visit Coding OBGYN Date of Service: Apr 22, 2025 Billing Provider: ZHAO LIVINGSTON CNM BLACKSMITH HAMMER OPERATOR Common Visit Codes: [id number] INP/OBS CARE(HIGH), [id number] SAME DATE (HIGH) BLACKSMITH HAMMER OPERATOR Procedure Codes: 42033-82- NON-STRESS TEST ZHAO LIVINGSTON CNM Apr 22, 2025 20:49
[2025-04-23] MEDS: ROPIVACAINE HCL 100 ML ONE (00:14)
[2025-04-23] MEDS: ceFAZolin 2 GM/D5W50ml 50 ML IV ONE (00:16)
--- NOTE | 2025-04-23 02:27 | DVHPN2 ---
CNM Labor Progress Note Date and Time Seen Date Seen: Apr 23, 2025 Time Seen: 02:05 Subjective Patient reports: No new complaints, Other (Feels more pressure and feels tired) Objective Vital Signs VSS Monitoring Method Monitoring Method: External Heart Rate Heart Rate Baseline: 150 Heart Rate Variability: Moderate Presence of FHR Accelerations: Yes Presence of FHR Decelerations: No Changes in Trends of Patterns: No Are all 5 Components of the FH: Yes Contractions Contractions Frequency: Other Duration of Contraction: 60 Contractions Intensity: Moderate Contractions Resting Tone: Relaxed Membranes Membranes: Ruptured Amniotic Fluid Color: MARKETING STRATEGY ANALYST Meconium Vaginal Exam Vag Exam Deferred: No Vaginal Exam Dilation: 10 Vaginal Exam Effacement: 100 Vaginal Exam Station: 0 Vaginal Exam Presentation: VTX Vaginal Exam Show: Small Medications Medications - Pitocin: Yes Medication - Epidural: Yes Lab Results Lab Results Vital Signs Date Time Temp Pulse Resp B/P (MAP) Pulse Ox O2 Delivery O2 Flow Rate FiO2 04/22/25 09:11 128/79 Current Medications Medications (Trade) Dose Ordered Sig/Kalyani Start Time Stop Time Status Last Admin Dose Admin Lactated Ringer's 1,000 ml @ 125 mls/hr Q8H 04/21/25 21:00 04/22/25 15:54 125 MLS/HR Witch Cait (Tucks) 1 pad PRN PRN 04/21/25 21:00 Sodium Lauryl Sulfate (Phisoderm) 240 ml PRN PRN 04/21/25 21:00 Benzocaine (Dermoplast) 1 applic PRN PRN 04/21/25 21:00 Butorphanol Tartrate (Stadol Injection) 1 mg Q4HPRN PRN 04/21/25 21:00 Butorphanol Tartrate (Stadol Injection) 2 mg Q4HPRN PRN 04/21/25 21:00 Misoprostol (Cytotec) 50 mcg Q4HPRN PRN 04/21/25 21:00 Lidocaine HCl (Xylocaine) 20 ml ONCE PRN 04/21/25 21:00 Misoprostol (Cytotec) 25 mcg Q6HPRN PRN 04/21/25 22:15 04/22/25 00:42 DC 04/22/25 00:02 25 MCG Fentanyl Citrate 50 mcg ONCE ONCE 04/21/25 22:45 04/21/25 22:49 DC 04/21/25 23:12 50 MCG Ondansetron HCl (Zofran) 4 mg Q6HPRN PRN 04/21/25 22:45 04/22/25 23:00 4 MG Misoprostol (Cytotec) 25 mcg Q4HPRN PRN 04/22/25 04:05 04/22/25 04:13 25 MCG Oxytocin 1,000 ml @ 6 ml/hr Q24H 04/22/25 08:00 04/22/25 11:00 6 ML/HR Terbutaline Sulfate (Brethine Inj) 0.25 mg ONCE PRN 04/22/25 08:00 Oxytocin 500 ml @ 999 mls/hr Q31M ONCE 04/22/25 08:00 04/22/25 08:30 DC Oxytocin 500 ml @ 125 mls/hr Q4H ONCE 04/22/25 08:30 04/22/25 12:29 DC Naloxone HCl (Narcan) 0.2 mg PRN ONCE 04/22/25 08:00 04/22/25 08:11 DC Ephedrine Sulfate (ePHEDrine SULFATE) 10 mg PRN ONCE 04/22/25 08:00 04/22/25 08:11 DC Fentanyl Citrate 100 mcg ONCE ONCE 04/22/25 08:00 04/22/25 08:11 DC 04/22/25 09:11 100 MCG Lidocaine HCl (Xylocaine-Pf 2% Injection) 10 ml ONCE ONCE 04/22/25 08:00 04/22/25 08:11 DC Lactated Ringer's 1,000 ml @ 1,000 mls/hr Q1H ONCE 04/22/25 08:00 04/22/25 08:59 DC 04/22/25 09:12 1,000 MLS/HR Famotidine (Pepcid Injection) 20 mg Q12HR PRN 04/22/25 08:45 04/22/25 09:05 20 MG Diphenhydramine HCl (Benadryl Injection) 25 mg Q4HP PRN 04/22/25 08:45 04/22/25 09:05 25 MG Cefazolin Sodium/ Dextrose 50 ml @ 50 mls/hr ONCE ONCE 04/23/25 00:00 04/23/25 00:59 DC 04/23/25 00:16 50 MLS/HR Laboratory Tests Test 04/21/25 21:19 04/21/25 20:45 Range/Units White Blood Count 9.2 4.4-10.8 10^3/uL Red Blood Count 3.89 L 4.0-5.20 10^6/uL Hemoglobin 10.9 L 12.2-16.2 g/dL Hematocrit 32.9 L 36.0-46.0 % Mean Corpuscular Volume 84.6 80.0-100.0 fL Mean Corpuscular Hemoglobin 28.0 28.0-32.0 pg Mean Corpuscular Hemoglobin Concent 33.1 32.0-36.0 g/dL Red Cell Distribution Width 15.4 H 11.8-14.3 % Platelet Count 301 140-450 10^3/uL Mean Platelet Volume 8.3 6.9-10.8 fL Neutrophils (%) (Auto) 73.4 37.0-80.0 % Lymphocytes (%) (Auto) 19.9 10.0-50.0 % Monocytes (%) (Auto) 5.1 0.0-12.0 % Eosinophils (%) (Auto) 1.3 0.0-7.0 % Basophils (%) (Auto) 0.3 0.0-2.0 % Neutrophils # (Auto) 6.7 1.6-8.6 10 ^3/uL Lymphocytes # (Auto) 1.8 0.4-5.4 10 ^3/uL Monocytes # (Auto) 0.5 0-1.3 10 ^3/uL Eosinophils # (Auto) 0.1 0-0.8 10 ^3/uL Basophils # (Auto) 0 0-0.2 10 ^3/uL Nucleated Red Blood Cells 0.1 % Prothrombin Time 9.6 9.3-11.8 sec Prothrombin Time INR 0.90 0.9-1.15 Activated Partial Thromboplast Time 26.6 24.5-34.5 SEC Sodium Level 139 136-145 mmol/L Potassium Level 3.8 3.5-5.1 mmol/L Chloride Level 107 98-107 mmol/L Carbon Dioxide Level 19 L 20-31 mmol/L Anion Gap 13 5-15 Blood Urea Nitrogen 8 L 9-23 mg/dL Creatinine 0.67 0.550-1.02 mg/dL Glomerular Filtration Rate Calc 122 >90 mL/min BUN/Creatinine Ratio 11.9 10.0-20.0 Serum Glucose 117 H 74-106 mg/dL Calcium Level 9.0 8.7-10.4 mg/dL Total Bilirubin 0.3 0.2-1.0 mg/dL Aspartate Amino Transferase (AST) 15 13-40 U/L Alanine Aminotransferase (ALT) 13 7-40 U/L Alkaline Phosphatase 166 H 46-116 U/L Total Protein 6.3 5.7-8.2 g/dL Albumin 3.7 3.2-4.8 g/dL Treponema pallidum Antibody Non-reactive Negative Urine Color Yellow Yellow Urine Clarity Clear Clear Urine pH 5.5 5.0-9.0 Urine Specific [place] 1.025 1.001-1.035 Urine Protein Negative Negative Urine Ketones Trace Negative Urine Blood Negative Negative /uL Urine Nitrite Negative Negative Urine Bilirubin Negative Negative Urine Urobilinogen Normal Negative mg/dL Urine Leukocyte Esterase 1+ Negative /uL Urine RBC 1 0 - 4 /hpf Urine Microscopic WBC 4 0-5 /HPF Urine Squamous Epithelial Cells Few <5 /hpf Urine Bacteria Few H None Seen /hpf Urine Mucus Few None Seen Urine Glucose Normal Normal mg/dL Urine Opiates Screen Neg NEGATIVE Urine Fentanyl Screen Neg NEGATIVE Urine Barbiturates Screen Neg NEGATIVE Urine Phencyclidine Screen Neg NEGATIVE Urine Amphetamines Screen Neg NEGATIVE Urine Benzodiazepines Screen Neg NEGATIVE Urine Cocaine Screen Neg NEGATIVE Urine Cannabinoids Screen Neg NEGATIVE Assessment Assessment > IUP at 40w 1d > Oligohydramnios > IOL for above > Category I FHR Tracing > h/o HSV Infection; 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
[2025-04-23] MEDS ORDERED: METHYLERGONOVINE MALEATE 0.2 MG/ML AMP IM ONE (04:34)
[2025-04-23] MEDS ORDERED: CARBOPROST TROMETHAMINE 250 MCG/1ML VIAL IM ONE (04:35)
[2025-04-23] MEDS ORDERED: TETRACAINE 1% INJ 2 ML VIAL IJ ONE (05:06)
--- NOTE | 2025-04-23 05:28 | LDN2 ---
Labor and Delivery Note Date 04/23/25 Age 30 2 Para 1 AB 1 EDC 12 EGA 40WKS Diagnosis IOL FOR OLIGO,MORBID OBESITY Vaginal Delivery: VTX Vacuum Assisted: Yes Placenta: Spontaneous Sex: Female Apgars 8-9 Nuchal Cord Transected: No Amniotic Fluid: Thin Anesthesia EPIDURAL Episiotomy: Yes Extension: Yes (MIDLINE EPIS WITH 2ND DEG PERINEAL LAC) Repaired with 2-0 CHROMIC EBL 300ML Labs Blood Bank 04/21/25 21:19: Blood Type A POSITIVE Complications NONE Conditions STABLE Comments/Significant Med Sheri SPEC EXAM NO CXAL LAC,MIDLINE EPIS PERMISSION OBTAINED AND VACCUM DEL PERMISSION OBTAINED PRIOR TO DOING THEM DUE TO POOR PUSHING EFFORT Visit Coding OBGYN Date of Service: Apr 23, 2025 Billing Provider: ROSSI POMPA DO GAUGER CHIEF DELIVERY Common Visit Codes: [id number] INP/OBS CARE (HIGH) GAUGER CHIEF DELIVERY Procedure Codes: [id number] DELIVERY ONLY ROSSI POMPA DO Apr 23, 2025 05:28
[2025-04-23] MEDS: LACT. RINGERS/OXYTOCIN 20UNITS 500 ML IV ONE ×2 (06:12)
--- NOTE | 2025-04-23 06:38 | DVHPN2 ---
CNM Labor Progress Note Date and Time Seen Date Seen: Apr 23, 2025 Time Seen: 04:00 Subjective Subjective Comment Patient states she can't do this, wants a C- section. Not pushing effectively. Encouraged to change position to facilitate descent and effective pushing She stated that that she doesn't want to any more and that she is about to get panic attack Deep breathing with slow exhalation encouraged, same helped pt to calm down. Comfort measures including cooling measures applied Objective Vital Signs VSS Monitoring Method Monitoring Method: External Heart Rate Heart Rate Baseline: 135 Heart Rate Variability: Moderate Presence of FHR Accelerations: Yes Heart Rate Type of Decel: Early Deceleraions Contractions Contractions Frequency: Other (2-4) Duration of Contraction: 60 Contractions Intensity: Moderate Contractions Resting Tone: Relaxed Membranes Membranes: Ruptured Amniotic Fluid Color: BROOM BUILDER Meconium Vaginal Exam Vaginal Exam Dilation: 10 Vaginal Exam Effacement: 100 Vaginal Exam Station: 0 Vaginal Exam Presentation: VTX Vaginal Exam Show: Small Medications Medications - Pitocin: Yes Medication - Epidural: Yes Lab Results Lab Results Vital Signs Date Time Temp Pulse Resp B/P (MAP) Pulse Ox O2 Delivery O2 Flow Rate FiO2 04/22/25 09:11 128/79 Current Medications Medications (Trade) Dose Ordered Sig/Kalyani Start Time Stop Time Status Last Admin Dose Admin Lactated Ringer's 1,000 ml @ 125 mls/hr Q8H 04/21/25 21:00 04/22/25 15:54 125 MLS/HR Witch Cait (Tucks) 1 pad PRN PRN 04/21/25 21:00 Sodium Lauryl Sulfate (Phisoderm) 240 ml PRN PRN 04/21/25 21:00 Benzocaine (Dermoplast) 1 applic PRN PRN 04/21/25 21:00 Butorphanol Tartrate (Stadol Injection) 1 mg Q4HPRN PRN 04/21/25 21:00 Butorphanol Tartrate (Stadol Injection) 2 mg Q4HPRN PRN 04/21/25 21:00 Misoprostol (Cytotec) 50 mcg Q4HPRN PRN 04/21/25 21:00 Lidocaine HCl (Xylocaine) 20 ml ONCE PRN 04/21/25 21:00 Misoprostol (Cytotec) 25 mcg Q6HPRN PRN 04/21/25 22:15 04/22/25 00:42 DC 04/22/25 00:02 25 MCG Fentanyl Citrate 50 mcg ONCE ONCE 04/21/25 22:45 04/21/25 22:49 DC 04/21/25 23:12 50 MCG Ondansetron HCl (Zofran) 4 mg Q6HPRN PRN 04/21/25 22:45 04/22/25 23:00 4 MG Misoprostol (Cytotec) 25 mcg Q4HPRN PRN 04/22/25 04:05 04/22/25 04:13 25 MCG Oxytocin 1,000 ml @ 6 ml/hr Q24H 04/22/25 08:00 04/22/25 11:00 6 ML/HR Terbutaline Sulfate (Brethine Inj) 0.25 mg ONCE PRN 04/22/25 08:00 Oxytocin 500 ml @ 999 mls/hr Q31M ONCE 04/22/25 08:00 04/22/25 08:30 DC Oxytocin 500 ml @ 125 mls/hr Q4H ONCE 04/22/25 08:30 04/22/25 12:29 DC Naloxone HCl (Narcan) 0.2 mg PRN ONCE 04/22/25 08:00 04/22/25 08:11 DC Ephedrine Sulfate (ePHEDrine SULFATE) 10 mg PRN ONCE 04/22/25 08:00 04/22/25 08:11 DC Fentanyl Citrate 100 mcg ONCE ONCE 04/22/25 08:00 04/22/25 08:11 DC 04/22/25 09:11 100 MCG Lidocaine HCl (Xylocaine-Pf 2% Injection) 10 ml ONCE ONCE 04/22/25 08:00 04/22/25 08:11 DC Lactated Ringer's 1,000 ml @ 1,000 mls/hr Q1H ONCE 04/22/25 08:00 04/22/25 08:59 DC 04/22/25 09:12 1,000 MLS/HR Famotidine (Pepcid Injection) 20 mg Q12HR PRN 04/22/25 08:45 04/22/25 09:05 20 MG Diphenhydramine HCl (Benadryl Injection) 25 mg Q4HP PRN 04/22/25 08:45 04/22/25 09:05 25 MG Cefazolin Sodium/ Dextrose 50 ml @ 50 mls/hr ONCE ONCE 04/23/25 00:00 04/23/25 00:59 DC 04/23/25 00:16 50 MLS/HR Laboratory Tests Test 04/21/25 21:19 04/21/25 20:45 Range/Units White Blood Count 9.2 4.4-10.8 10^3/uL Red Blood Count 3.89 L 4.0-5.20 10^6/uL Hemoglobin 10.9 L 12.2-16.2 g/dL Hematocrit 32.9 L 36.0-46.0 % Mean Corpuscular Volume 84.6 80.0-100.0 fL Mean Corpuscular Hemoglobin 28.0 28.0-32.0 pg Mean Corpuscular Hemoglobin Concent 33.1 32.0-36.0 g/dL Red Cell Distribution Width 15.4 H 11.8-14.3 % Platelet Count 301 140-450 10^3/uL Mean Platelet Volume 8.3 6.9-10.8 fL Neutrophils (%) (Auto) 73.4 37.0-80.0 % Lymphocytes (%) (Auto) 19.9 10.0-50.0 % Monocytes (%) (Auto) 5.1 0.0-12.0 % Eosinophils (%) (Auto) 1.3 0.0-7.0 % Basophils (%) (Auto) 0.3 0.0-2.0 % Neutrophils # (Auto) 6.7 1.6-8.6 10 ^3/uL Lymphocytes # (Auto) 1.8 0.4-5.4 10 ^3/uL Monocytes # (Auto) 0.5 0-1.3 10 ^3/uL Eosinophils # (Auto) 0.1 0-0.8 10 ^3/uL Basophils # (Auto) 0 0-0.2 10 ^3/uL Nucleated Red Blood Cells 0.1 % Prothrombin Time 9.6 9.3-11.8 sec Prothrombin Time INR 0.90 0.9-1.15 Activated Partial Thromboplast Time 26.6 24.5-34.5 SEC Sodium Level 139 136-145 mmol/L Potassium Level 3.8 3.5-5.1 mmol/L Chloride Level 107 98-107 mmol/L Carbon Dioxide Level 19 L 20-31 mmol/L Anion Gap 13 5-15 Blood Urea Nitrogen 8 L 9-23 mg/dL Creatinine 0.67 0.550-1.02 mg/dL Glomerular Filtration Rate Calc 122 >90 mL/min BUN/Creatinine Ratio 11.9 10.0-20.0 Serum Glucose 117 H 74-106 mg/dL Calcium Level 9.0 8.7-10.4 mg/dL Total Bilirubin 0.3 0.2-1.0 mg/dL Aspartate Amino Transferase (AST) 15 13-40 U/L Alanine Aminotransferase (ALT) 13 7-40 U/L Alkaline Phosphatase 166 H 46-116 U/L Total Protein 6.3 5.7-8.2 g/dL Albumin 3.7 3.2-4.8 g/dL Treponema pallidum Antibody Non-reactive Negative Urine Color Yellow Yellow Urine Clarity Clear Clear Urine pH 5.5 5.0-9.0 Urine Specific [place] 1.025 1.001-1.035 Urine Protein Negative Negative Urine Ketones Trace Negative Urine Blood Negative Negative /uL Urine Nitrite Negative Negative Urine Bilirubin Negative Negative Urine Urobilinogen Normal Negative mg/dL Urine Leukocyte Esterase 1+ Negative /uL Urine RBC 1 0 - 4 /hpf Urine Microscopic WBC 4 0-5 /HPF Urine Squamous Epithelial Cells Few <5 /hpf Urine Bacteria Few H None Seen /hpf Urine Mucus Few None Seen Urine Glucose Normal Normal mg/dL Urine Opiates Screen Neg NEGATIVE Urine Fentanyl Screen Neg NEGATIVE Urine Barbiturates Screen Neg NEGATIVE Urine Phencyclidine Screen Neg NEGATIVE Urine Amphetamines Screen Neg NEGATIVE Urine Benzodiazepines Screen Neg NEGATIVE Urine Cocaine Screen Neg NEGATIVE Urine Cannabinoids Screen Neg NEGATIVE Consulting with Regarding Dr Hill Esteves, regarding lack of descent and patient's request for C- section Assessment Assessment IUP at 40w 1d Oligohydramnios IOL for Above h/o HSV Infection; No active lesion at this time Category I FHR Tracing 2nd Stage of labor Lack of descent due to ineffective pushing by mother Plan Plan > Oxytocin discontinued > Patient to be prepared for Primary Section > OR crew to be called > Dr Esteves will come in for surgery > CNM & RN continued to be with patient for support, comfort measures and encouragement. > Patient allowed to assume any position she finds comfortable; including being on all four > Patient was having uncontrollable bearing down / pushing naturally > Above eventually helped with descent of presenting part > Repeated VE upon Dr Esteves's arrival was 10/100%/+2 > Patient was then delivered by Dr Esteves ([facility]) at 05:04am Plan discussed with: Patient, Spouse Visit Coding OBGYN Date of Service: Apr 23, 2025 Billing Provider: ZHAO LIVINGSTON CNM DIGITAL ADVERTISING SPECIALIST Common Visit Codes: [id number] INP/OBS CARE(HIGH) DIGITAL ADVERTISING SPECIALIST Procedure Codes: [id number]- NON-STRESS TEST ZHAO LIVINGSTON CNM Apr 23, 2025 06:38
[2025-04-23] MEDS ORDERED: ceFAZolin 1GM/50ML 50 ML IV SCH (08:00)
[2025-04-23] MEDS: DERMOPLAST 60ML BOTTLE TOP PRN (08:28)
[2025-04-23] MEDS: PHISODERM TOP SOLN 240ML BTL TOP PRN (08:28)
[2025-04-23] MEDS: WITCH HAZEL-GLYCERIN PAD TOP PRN (08:28)
[2025-04-23] MEDS: ACETAMINOPHEN 325 MG TAB PO PRN (08:29)
[2025-04-23 08:31] VITALS: BP 108/63; PULSE 85; RESP 18; TEMP 98.3; O2SAT 97
[2025-04-23 10:48] VITALS: BP 98/54; PULSE 81; RESP 16; TEMP 98; O2SAT 97
[2025-04-23] MEDS: IBUPROFEN 600 MG TAB PO PRN (10:54)
[2025-04-23] MEDS: CEPHALEXIN 250 MG CAP PO SCH (11:54)
[2025-04-23 14:36] VITALS: BP 111/65; PULSE 84; RESP 16; TEMP 97.8; O2SAT 98
[2025-04-23 19:03] VITALS: BP 107/63; PULSE 86; RESP 16; TEMP 98; O2SAT 98
[2025-04-23 23:00] VITALS: BP 110/67; PULSE 87; RESP 17; TEMP 98.2; O2SAT 97
[2025-04-24] MEDS: DOCUSATE SOD 100 MG CAP PO SCH (00:07)
[2025-04-24 03:25] VITALS: BP 113/70; PULSE 82; RESP 20; TEMP 98.2; O2SAT 97
--- NOTE | 2025-04-24 05:42 | DVHPN2 ---
Progress Note Date Seen: Apr 24, 2025 Subjective S: > Lochia minimal > Tolerating regular diet well. > Ambulating and voiding well w/o feeling lightheaded or dizzy. > Passing flatus but no BM yet. Breast feeding. > Contraceptive plan:Depo Provera injection > Desires and requests to be discharged home today vital signs Vital Sign Date Time Temp Pulse Resp B/P (MAP) Pulse Ox O2 Delivery O2 Flow Rate FiO2 04/24/25 03:25 98.2 82 20 113/70 (84) 97 98.2 04/23/25 18:30 Room Air 04/23/25 07:00 0.0 Total Intake and Output 04/23/25 04/23/25 04/24/25 15:00 23:00 07:00 Output Total 1500 ml 300 ml Balance -1500 ml -300 ml medications Current Medications Medications Dose Ordered Sig/Kalyani Route Start Time Stop Time Status Last Admin Dose Admin Kristen Chavira 1 pad PRN PRN TOP 04/21/25 21:00 04/23/25 08:28 1 PAD Sodium Lauryl Sulfate 240 ml PRN PRN TOP 04/21/25 21:00 04/23/25 08:28 240 ML Benzocaine 1 applic PRN PRN TOP 04/21/25 21:00 04/23/25 08:28 1 APPLIC Butorphanol Tartrate 1 mg Q4HPRN PRN IV 04/21/25 21:00 Cancel Butorphanol Tartrate 2 mg Q4HPRN PRN IV 04/21/25 21:00 Cancel Misoprostol 50 mcg Q4HPRN PRN PO 04/21/25 21:00 Cancel Lidocaine HCl 20 ml ONCE PRN IJ 04/21/25 21:00 Cancel Ondansetron HCl 4 mg Q6HPRN PRN IV 04/21/25 22:45 04/22/25 23:00 4 MG Terbutaline Sulfate 0.25 mg ONCE PRN SC 04/22/25 08:00 Cancel Famotidine 20 mg Q12HR PRN IV 04/22/25 08:45 04/22/25 09:05 20 MG Diphenhydramine HCl 25 mg Q4HP PRN IV 04/22/25 08:45 04/22/25 09:05 25 MG Ibuprofen 600 mg Q6HP PRN PO 04/23/25 08:15 04/24/25 00:08 600 MG Acetaminophen 650 mg Q4HP PRN PO 04/23/25 08:15 04/24/25 03:16 650 MG Docusate Sodium 200 mg HS PO 04/23/25 22:00 04/24/25 00:07 200 MG Cephalexin 500 mg Q6HR PO 04/23/25 12:00 04/24/25 00:07 500 MG laboratory and microbiology Laboratory Tests 04/21/25 21:19 Test 04/21/25 21:19 Range/Units Serum Glucose 117 H 74-106 mg/dL Objective O: > A&O x3 NAD. > Afebrile, VSS > Chest: heart and lung sounds normal. > Breasts: Nipples intact w/o cracks or soreness > Abdomen: normal BS, soft, non-tender, no rebound or guarding, fundus firm @ U-1, lochia minimal > Perineum:- no edema, or erythema, Episiotomy incision site with sutures intact, edges in good approximation. > Extremities: no edema or tenderness Assessment/Plan A/P > 30 yo now ppd#1 s/p VAVD doing well. > Anemia > Blood Type: A Rh: Positive > Breast feeding and Formula feeding > Rubella Immune > Pain control with oral medications > Bowel regimen: Increase fluid intake and fiber in diet, Laxative PRN > PP BCM Plan: Depo Provera > Discharge plan: May discharge home later today if condition remains stable Plan discussed with: Patient, Spouse Visit Coding OBGYN Date of Service: Apr 24, 2025 Billing Provider: ZHAO LIVINGSTON CNM ADMINISTRATION SPECIALIST Common Visit Codes: [id number] INP/OBS CARE(HIGH) ZHAO LIVINGSTON CNM Apr 24, 2025 05:42
--- NOTE | 2025-04-24 06:10 | DVHDS2 ---
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, on suppressive therapy > Anemia Wounds: Episiotomy site intact w/o any sign of infection Labs/Diagnostic Data: Laboratory Results Test 04/21/25 21:19 04/21/25 20:45 White Blood Count 9.2 10^3/uL (4.4-10.8) Red Blood Count 3.89 10^6/uL (4.0-5.20) Hemoglobin 10.9 g/dL (12.2-16.2) Hematocrit 32.9 % (36.0-46.0) Mean Corpuscular Volume 84.6 fL (80.0-100.0) Mean Corpuscular Hemoglobin 28.0 pg (28.0-32.0) Mean Corpuscular Hemoglobin Concent 33.1 g/dL (32.0-36.0) Red Cell Distribution Width 15.4 % (11.8-14.3) Platelet Count 301 10^3/uL (140-450) Mean Platelet Volume 8.3 fL (6.9-10.8) Neutrophils (%) (Auto) 73.4 % (37.0-80.0) Lymphocytes (%) (Auto) 19.9 % (10.0-50.0) Monocytes (%) (Auto) 5.1 % (0.0-12.0) Eosinophils (%) (Auto) 1.3 % (0.0-7.0) Basophils (%) (Auto) 0.3 % (0.0-2.0) Neutrophils # (Auto) 6.7 10 ^3/uL (1.6-8.6) Lymphocytes # (Auto) 1.8 10 ^3/uL (0.4-5.4) Monocytes # (Auto) 0.5 10 ^3/uL (0-1.3) Eosinophils # (Auto) 0.1 10 ^3/uL (0-0.8) Basophils # (Auto) 0 10 ^3/uL (0-0.2) Nucleated Red Blood Cells 0.1 % Prothrombin Time 9.6 sec (9.3-11.8) Prothrombin Time INR 0.90 (0.9-1.15) Activated Partial Thromboplast Time 26.6 SEC (24.5-34.5) Sodium Level 139 mmol/L (136-145) Potassium Level 3.8 mmol/L (3.5-5.1) Chloride Level 107 mmol/L (98-107) Carbon Dioxide Level 19 mmol/L (20-31) Anion Gap 13 (5-15) Blood Urea Nitrogen 8 mg/dL (9-23) Creatinine 0.67 mg/dL (0.550-1.02) Glomerular Filtration Rate Calc 122 mL/min (>90) BUN/Creatinine Ratio 11.9 (10.0-20.0) Serum Glucose 117 mg/dL (74-106) Calcium Level 9.0 mg/dL (8.7-10.4) Total Bilirubin 0.3 mg/dL (0.2-1.0) Aspartate Amino Transferase (AST) 15 U/L (13-40) Alanine Aminotransferase (ALT) 13 U/L (7-40) Alkaline Phosphatase 166 U/L (46-116) Total Protein 6.3 g/dL (5.7-8.2) Albumin 3.7 g/dL (3.2-4.8) Treponema pallidum Antibody Non-reactive (Negative) Urine Color Yellow (Yellow) Urine Clarity Clear (Clear) Urine pH 5.5 (5.0-9.0) Urine Specific [place] 1.025 (1.001-1.035) Urine Protein Negative (Negative) Urine Ketones Trace (Negative) Urine Blood Negative /uL (Negative) Urine Nitrite Negative (Negative) Urine Bilirubin Negative (Negative) Urine Urobilinogen Normal mg/dL (Negative) Urine Leukocyte Esterase 1+ /uL (Negative) Urine RBC 1 /hpf (0 - 4) Urine Microscopic WBC 4 /HPF (0-5) Urine Squamous Epithelial Cells Few /hpf (<5) Urine Bacteria Few /hpf (None Seen) Urine Mucus Few (None Seen) Urine Glucose Normal mg/dL (Normal) Urine Opiates Screen Neg (NEGATIVE) Urine Fentanyl Screen Neg (NEGATIVE) Urine Barbiturates Screen Neg (NEGATIVE) Urine Phencyclidine Screen Neg (NEGATIVE) Urine Amphetamines Screen Neg (NEGATIVE) Urine Benzodiazepines Screen Neg (NEGATIVE) Urine Cocaine Screen Neg (NEGATIVE) Urine Cannabinoids Screen Neg (NEGATIVE) Other Laboratory Tests 04/21/25 21:19 Brief Hx & Hospital Course: Ms. Maria Thomas was admitted on 04/21/25 at 39w 6d EGA for IOL d/t Oligohydramnios. Induction process started with cervical ripening medication followed by Oxytocin augmentation. Patient then had an uneventful labor, got labor epidural for pain relief. She progressed to 2nd stage of labor and had a VAVD over a midline episiotomy on 04/23/25. Delivered by Dr Esteves.(See Delivery Note for details) Normal course; meeting milestones w/o any problem or complications. Consults/Reason for consult Consulted with Dr. Esteves when patient refused to push or follow advise on how to push effectively, stating that she couldn't push anymore and will rather have a section. However, she had involuntary pushing and head was at +2 /+[address] Esteves's arrival. Patient then agrees to VAVD. Operations or Procedures > Midline Episiotomy > Vacuum Assisted Delivery Condition at Discharge: Good Final Diagnosis/Problems List Same Term - Delivered Discharge Disposition: Home Discharge Instruct/Medications Diet: Regular Diet comment: Routine regular diet rich in fiber, protein, iron and vitamin C with adequate fluid intake. Activity: Activity comment: Advance as tolerated. Balance activities with rest periods No heavy lifting, pushing or straining. Pelvic rest x 6weeks Follow Up/Referral: Follow up with Dr. Esteves in 1 week Medications: Medications: Ibuprofen 600mg every 6 hours as needed for pain. Continue Vitamin Ferrous Sulfate. Scheduled Cephalexin Monohydrate (Cephalexin), 1 CAP PO QID Vit W/ Ferrous Fumara ( One Daily), 1 TAB PO DAILY, (Reported) Scheduled PRN Acetaminophen (Acetaminophen), 500 MG PO Q6HP PRN Ibuprofen (Ibuprofen), 600 MG PO Q6HP PRN for BREAKTHROUGH PAIN, (Reported) 35 Discharge Statement: self care instructions given. emergency signs and symptoms including but not limited to pre-eclampsia precautions and signs of infection, PPH & of PPD reviewed with patient "Patient was advised to return to the ER or call 911 if any headaches, dizziness, shortness of breath, chest pain, abdominal pain, bleeding, fevers, or worsening of medical condition. Patient was counseled about treatment plan, medications, possible side effects, patientverbalized understanding. All questions were answered to the best of my ability. This discharge took greater then 30 minutes in planning, reviewing documentation, counseling the patient, and discussing with other team members." ASSESSMENT ASSESSMENT Hospital Course Ms. Maria Thomas was admitted on 04/21/25 at 39w 6d EGA for IOL d/t Oligohydramnios. Induction process started with cervical ripening medication followed by Oxytocin augmentation. Patient then had an uneventful labor, got labor epidural for pain relief. She progressed to 2nd stage of labor and had a VAVD over an a midline episiotomy on 04/23/25. Delivered by Dr Esteves. (See Delivery Note for details) Normal course; meeting milestones w/o any problem or complications. Assessment Term Delivered IOL for Oligohydramnios h/o of HSV2 Infection Visit Coding OBGYN Date of Service: Apr 24, 2025 Billing Provider: ZHAO LIVINGSTON CNM RISK MODELER Common Visit Codes: [id number] DISCH DAY >30MIN ZHAO LIVINGSTON CNM Apr 24, 2025 06:10
[2025-04-24 07:00] VITALS: BP 116/66; PULSE 89; RESP 16; TEMP 97.8; O2SAT 99
[2025-04-24] MEDS ORDERED: IBUP-1454 PO ×2 (08:31)
== END 2025-04-24 11:22 | disposition home or self-care (01) | DRG 560 ==
LOC: LDRP 20:40
PROVIDERS: ADMIT Obstetrics & Gynecology; ATTEND Obstetrics & Gynecology
PROC: 3E0R3BZ Introduction of Anesthetic Agent into Spinal Canal, Percutaneous Approach (ICD-10-PCS; 2025-04-22)
PROC: 00HU33Z Insertion of Infusion Device into Spinal Canal, Percutaneous Approach (ICD-10-PCS; 2025-04-22)
PROC: 10D07Z6 Extraction of Products of Conception, Vacuum, Via Natural or Artificial Opening (ICD-10-PCS; principal; 2025-04-23)
PROC: 0KQM0ZZ Repair Perineum Muscle, Open Approach (ICD-10-PCS; 2025-04-23)
PROC: 3E0DXGC Introduction of Other Therapeutic Substance into Mouth and Pharynx, External Approach (ICD-10-PCS; 2025-04-23)
PROC: 0W8NXZZ Division of Female Perineum, External Approach (ICD-10-PCS; 2025-04-23)
DX: O41.03X0 Oligohydramnios, third trimester, not applicable or unspecified (principal); Z37.0 Single live birth; E66.01 Morbid (severe) obesity due to excess calories; O99.214 Obesity complicating childbirth; O70.1 Second degree perineal laceration during delivery; O77.0 Labor and delivery complicated by meconium in amniotic fluid; Z3A.39 39 weeks gestation of pregnancy; O90.81 Anemia of the puerperium
CPT/HCPCS: 36415; 59025; 59200; 59409; 62282; 80053; 80307; 81001; 81002; 85025; 85610; 85730; 86780; 86850; 86900; 86901; 94760; 96360; 96361; 96365; 96366; 96374; 96375; G0378; J2405; J2590; J3490